=== PATIENT | female | born 1970 | race Caucasian/White ===

== ENCOUNTER → 2017-08-29 | Outpatient (CLI) | payer BC ==
[~2017-08-29] MED LIST: ZLF/50 PO
== END | disposition home or self-care (01) ==
LOC: C.LABSPEC 15:59
PROVIDERS: ATTEND Obstetrics & Gynecology
DX: R39.9 Unspecified symptoms and signs involving the genitourinary system (principal)

== ENCOUNTER → 2017-09-05 | Outpatient (CLI) | payer BC | END | disposition home or self-care (01) | LOC: C.PATHSPEC 17:39 | PROVIDERS: ATTEND Urology | DX: R93.8 Abnormal findings on diagnostic imaging of other specified body structures (principal); R30.0 Dysuria; R31.0 Gross hematuria; R39.15 Urgency of urination ==

== ENCOUNTER → 2017-09-05 | Outpatient (CLI) | payer BC ==
--- NOTE | 2017-09-06 14:55 | MAMMOGRAPHY REPORT ---
BILATERAL DIGITAL SCREENING MAMMOGRAM TOMOSYNTHESIS WITH CAD: 09/05/2017 CLINICAL HISTORY: Routine screening. Patient has no complaints. TECHNIQUE: The study was acquired using full field digital technology and interpreted from soft copy. Breast tomosynthesis in addition to standard 2D mammography was performed. Current study was also ev aluated with a Computer Aided Detection (CAD) system. COMPARISON: Comparison is made to exams dated: 08/03/2014 mammogram, 01/19/2014 mammogram, 07/21/2013 mammogram, 07/17/2013 mammogram, 07/16/2012 mammogram - [facility], and 08/06/2009 mamm ogram. BREAST COMPOSITION: The tissue of both breasts is heterogeneously dense, which may obscure small mass es. FINDINGS: The glandular pattern is similar to prior mammograms including a stable asymmetry in the sl ightly medial and posterior right breast on the CC view. No new suspicious mass, architectural distor tion or cluster of microcalcifications is seen. IMPRESSION: ACR BI-RADS CATEGORY 1: NEGATIVE There is no mammographic evidence of malignancy. A 1 year screening mammogram is recommended.( [id number]) The patient will receive written notification of the results. Some breast cancers are not detected with mammography. A negative mammographic report should not otf y biopsy if a clinically suggestive mass is present. Domitila Bynum M.D. ay/:09/05/2017 16:09:34 New Vehicle Sales Consultant: Maricruz Floyd, [facility] letter sent: Normal 1/2 BI-RADS Code: ACR BI-RADS Category 1: Negative
== END | disposition home or self-care (01) ==
LOC: C.MAMM 12:36
PROVIDERS: ATTEND Nurse Practitioner Family
DX: Z12.31 Encounter for screening mammogram for malignant neoplasm of breast (principal)

== ENCOUNTER → 2017-09-10 | Outpatient (CLI) | payer BC | END | disposition home or self-care (01) | LOC: C.LAB 16:57 | PROVIDERS: ATTEND Urology | DX: R93.8 Abnormal findings on diagnostic imaging of other specified body structures (principal); R30.0 Dysuria; R31.9 Hematuria, unspecified; R39.15 Urgency of urination ==

== ENCOUNTER 2023-08-27 12:39 | Observation (INO) ==
--- NOTE | 2023-08-27 12:57 | Emergency Department Note ---
Impression & Plan Stroke-like symptoms, Paresthesias ED Provider Note HISTORY OF PRESENT ILLNESS: Patient is a 53-year-old female presenting with left-sided numbness and tingling. Patient reports that last night around 1999 she developed left facial numbness and tingling. Reports that it felt like her face was injected with lidocaine like at the dentist. She states that she went to bed and "normally I am very restless sleeping but last night he slept very soundly because I was so exhausted." She states that she woke this morning and had numbness and tingling in her left arm and left lower extremity. She states that she called her primary care provider's office and they referred her to the emergency department for further evaluation. Patient denies any chest pain or shortness of breath. Denies any anticoagulation or antiplatelet use. She states that she has had some intermittent numbness in her left side over the last week, but the numbness currently is persistent and has not gone away. Denies any headache or significant changes in vision. Denies any slurred speech. She reports it does feel slightly difficult to get words out secondary to "my mouth feels like it is lagging behind." ROS: as above PHYSICAL EXAM: Constitutional: Patient appears in no acute distress. HENT: Head: Normocephalic and atraumatic. Eyes: EOMI, PERRL Mouth/Throat: Mucous membranes moist. Neck: Trachea midline. Neck supple. Cardiovascular: RRR, No murmurs, rubs or gallops. Intact distal pulses. Pulmonary/Chest: No respiratory distress. Breath sounds clear and equal bilaterally. No wheezes or rales. Abdominal: Abdomen soft, no tenderness, rebound or guarding. Musculoskeletal: No edema, tenderness or deformity noted. Skin: Warm and dry. No rash, erythema, pallor or cyanosis Psychiatric: Appropriate mood and affect for situation. Neurological: Alert and keenly responsive. Facies symmetric. Able to raise eyebrows, close eyes, smile, puff mouth, stick out tongue, move tongue left and right and raise palate symmetrically. Able to shrug shoulders. PERRLA. SILT to forehead below eye and at jawline. Can hear soft noise bilaterally. Good finger to nose. Strength 5/5 in bilateral upper and lower extremities. SILT throughout bilateral upper and lower extremities. MDM: - Vitals signs showed hypertension. - History obtained via patient. History as above. - Chronic conditions affecting care: None - Differential diagnoses include, but are not limited to: CVA; intracranial hemorrhage; dysrhythmia; electrolyte abnormality - Order placed for continuous cardiac monitoring. At this time, monitor showed rate of 71 bpm with normal sinus rhythm, per my interpretation. - External medical records reviewed. History and physical note from 02/26/2018 was reviewed. Patient was seen for follow up s/p lap trevin - EKG interpreted by myself showed normal sinus rhythm. Rate 77 bpm. QT 392. No acute ischemic changes. 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 - Patient started having a left-sided headache in ER. Given 1g IV tylenol. She continued to have paresthesias of her LUE and left face. Will admit for further stroke-like symptoms workup. - Discussion was had with embedded case manager about patient's case and need for admission - Hospitalist consulted for admission - [facility] and [facility]. ASSESSMENT AND PLAN: Diagnosis: stroke-like symptoms; paresthesias Plan: admit Past Med/Surg History Problem List Paresthesias (Acute) Stroke-like symptoms (Acute) Encounter for pre-operative examination Diverticulosis Gallstones History of endometrial ablation Anxiety (Chronic) History of nasal septoplasty History of tonsillectomy History of tooth extraction WISDOM TEETH History of laparoscopy History of colonoscopy Medical History (Updated 08/27/23 @ 15:23 by Shayla La MD) Anemia HX Temporomandibular joint disorder POPS BILAT HAS NEVER LOCKED Surgical History History of esophagogastroduodenoscopy (EGD) Family History Mother Family history of diabetes mellitus Social History Smoking Status: Never smoker Second Hand Exposure: No; Do You Dip or Chew Tobacco: No; Hx Alcohol Use: No Hx Substance Use: No Preferred Language: Lithuanian Communication Ability: Effective Wireworker Required: No Beliefs That Will Affect Care: None marital status: Current Living Situation: Spouse and Family Current Living Situation Comment: LIVES WITH , SON AND STEPSON current occupational status: employed Feels Safe at Home: Yes Assistive Devices: Glasses Allergies Allergies Allergy/AdvReac Type Severity Reaction Status Date / Time bee venom protein (honey bee) Allergy Severe Difficulty Verified 03/02/21 22:46 Breathing ciprofloxacin [From Cipro] Allergy Severe Swelling Verified 03/02/21 22:46 of Lip/Tongue/Throat sulfamethoxazole Allergy Severe HIVES,SWELLING Verified 03/02/21 22:47 [From Bactrim] LIPS THROAT trimethoprim [From Bactrim] Allergy Severe HIVES,SWELLING Verified 03/02/21 22:47 LIPS THROAT amoxicillin Allergy Intermediate hives Verified 03/02/21 22:47 clavulanic acid Allergy Intermediate hives Verified 03/02/21 22:47 oxycodone Allergy Intermediate Hives Verified 03/02/21 22:46 Home Meds Home Medications Medication Instructions Recorded Confirmed sertraline 50 mg tablet 50 mg PO HS 11/13/17 08/27/23 epinephrine 0.3 mg/0.3 mL 0.3 ml IM DAILY PRN Allergic 05/05/20 08/27/23 injection, auto-injector Reaction Results & Data (ED) Vital Signs Vital Signs - 24 hr 08/27/23 12:46 08/27/23 12:59 08/27/23 13:03 Pulse Rate 80 83 79 Pulse Rate [Apical] Pulse Rate from SpO2 Sensor 80 Pulse Rhythm Regular Pulse Rhythm [Apical] Pulse Strength Normal Pulse Strength [Apical] Respiratory Rate 18 18 Respiratory Effort / Characteristics Non-Labored Respiratory Depth Normal Respiratory Pattern Blood Pressure 166/87 H 138/91 Blood Pressure [Right Arm] Blood Pressure Mean 113 106 Blood Pressure Mean [Right Arm] Blood Pressure Position Sitting Pulse Oximetry 98 99 Oxygen Delivery Method Room Air Room Air Sepsis Recent Fever Within 48 Hours No Sepsis New/Unexplained Change in Mental Status No Sepsis Action Taken by Nursing No Action Required 08/27/23 15:10 Pulse Rate Pulse Rate [Apical] 71 Pulse Rate from SpO2 Sensor Pulse Rhythm Pulse Rhythm [Apical] Regular Pulse Strength Pulse Strength [Apical] Normal Respiratory Rate 18 Respiratory Effort / Characteristics Non-Labored Spontaneous Respiratory Depth Normal Respiratory Pattern Regular Blood Pressure Blood Pressure [Right Arm] 132/80 Blood Pressure Mean Blood Pressure Mean [Right Arm] 97 Blood Pressure Position Pulse Oximetry 97 Oxygen Delivery Method Room Air Sepsis Recent Fever Within 48 Hours Sepsis New/Unexplained Change in Mental Status Sepsis Action Taken by Nursing Laboratory Data 08/27/23 12:54 08/27/23 12:54 Lab Results 08/27/23 08/27/23 Range/Units 12:54 13:03 WBC 5.58 (4.8-10.8) K/ul RBC 4.48 (4.20-5.40) M/uL Hgb 13.5 (12.0-16.0) g/dl POC Hgb 12.9 (12.0-16.0) g/dl Hct 39.6 (37.0-47.0) % POC Hct 38 (37-47) % MCV 88.4 (80.0-100.0) fL MCH 30.1 (25.0-34.0) pg MCHC 34.1 (32.0-36.0) g/dL RDW Std Deviation 39.2 (36.4-46.3) fL RDW Coeff of Neal 12.2 (11.5-14.5) % Plt Count 238 (130-400) K/uL MPV 9.5 (9.4-12.4) fL PT 10.2 (9.0-12.0) Seconds INR 0.9 (0.9-1.1) APTT 27 (21-31) Seconds PTT Ratio 1.0 POC Sodium 141 (135-144) mmol/L Sodium 140 (136-145) mmol/L POC Potassium 3.6 (3.3-5.0) mmol/L Potassium 3.6 (3.5-5.1) mmol/L POC Chloride 103 (101-112) mmol/L Chloride 105 (98-107) mmol/L Carbon Dioxide 28 (21-32) mmol/L POC Total CO2 24 (24-31) mmol/L Anion Gap 7 (3-11) POC Anion Gap 19.0 (16-25) mmol/L POC BUN 10 (7-18) mg/dl BUN 11 (6-23) mg/dl Creatinine 0.86 (0.6-1.2) mg/dl POC Creatinine 0.9 (0.6-1.3) mg/dl Est Cr Clr Drug Dosing 74.9 ml/min Est GFR ( Amer) 88.1 ml/min Est GFR (Non-Af Amer) 76.1 ml/min BUN/Creatinine Ratio 12.8 (10-20) Glucose 133 H (70-99(Fasting)) mg/dl POC Glucose (other) 130 H (70-99) mg/dl Calcium 9.4 (8.6-10.3) mg/dl POC Ioniz Calcium Chetna 1.21 (1.12-1.32) mmol/l Magnesium 2.0 (1.7-2.4) mg/dl Total Bilirubin 0.4 (0.2-1.0) mg/dl AST 16 (13-39) U/L ALT 16 (7-52) U/L Alkaline Phosphatase 43 (34-104) U/L Troponin I High Sens < 2.3 (0-14) pg/ml Total Protein 7.0 (6.0-8.3) gm/dl Albumin 4.4 (3.4-5.0) gm/dl Globulin 2.6 (2.5-4.0) gm/dl Albumin/Globulin Ratio 1.7 (0.9-2) Administered Medications Discontinued Medications Acetaminophen (Ofirmev) 1,000 mg in 100 mls @ 400 mls/hr IV NOW STA Stop: 08/27/23 15:13 Last Admin: 08/27/23 15:04 Dose: 400 mls/hr Documented By: NITO Ioversol (Optiray 320 125ml) 119 ml IV ONCE ONE Stop: 08/27/23 13:22 Last Admin: 08/27/23 13:22 Dose: 119 ml Documented By: KAJAL Imaging Data Radiologist's Impression: Chest X-Ray 08/27/23 12:53 XR chest 1V portable CLINICAL HISTORY: stroke like symptoms COMPARISON STUDY: No previous studies for comparison. FINDINGS: Lung volumes are normal. Lungs are clear. There is no pneumothorax or pleural effusion. Cardiac size is normal. Mediastinal contours are normal. There is no evidence for pulmonary edema. IMPRESSION: No acute cardiopulmonary findings. ACT 112: Negative or not required by law. Electronically signed by: Nitish Joy M.D. 08/27/2023 1:[address] 08/27/23 12:53 CT head/brain wo con CLINICAL HISTORY: 53 years-old Female with Neuro deficit, acute, stroke suspected. Acute stroke like symptoms TECHNIQUE: Multiple axial CT images of the head were obtained without contrast. A dose lowering technique was utilized adhering to the principles of ALARA. CT DOSE: 1058.71 mGy.cm COMPARISON: CTA head of same day, head CT 03/02/2021 FINDINGS: No acute intracranial hemorrhage, midline shift, intracranial mass, hydrocephalus, territorial ischemia or abnormal extra-axial collection. Mildly motion degraded exam. Low-lying cerebellar tonsils. The calvarium is intact. The paranasal sinuses, mastoid air cells, and middle ear cavities are clear. IMPRESSION: No acute intracranial abnormality. ACT 112: Negative or not required by law. The above report was generated using voice recognition software. It may contain grammatical, syntax or spelling errors. Electronically signed by: Cruz Patel M.D. 08/27/2023 1:29 PM Head CTA 08/27/23 12:53 CT angio head w con CLINICAL HISTORY: 53 years-old Female with L sided numbness. Acute stroke like symptoms COMPARISON STUDY: Head CT of same day, CTA head 03/02/2021 TECHNIQUE: Unenhanced axial CT scan of the brain is performed. Subsequently, following the IV administration of 03/02/2021 cc of Optiray, CT angiogram of the brain was performed from the skull base to the vertex. Images are reviewed in the axial, sagittal, and coronal planes. 3-D MIPS images are created and assessed. IV contrast was administered without complication. All measurements were obtained according to NASCET criteria. A dose lowering technique was utilized adhering to the principles of ALARA. FINDINGS: CT ANGIOGRAM OF THE BRAIN: The middle and anterior cerebral arteries appear patent. There is an unchanged 2 mm saccular aneurysm noted at the level of the left MCA trifurcation (image 116 of series 5). Dominant right vertebral artery. The vertebral arteries are widely patent. The bilateral vertebral arteries are widely patent. The basilar and posterior cerebral arteries are patent. The cerebral venous sinuses are patent. There is no abnormal intracranial enhancement. IMPRESSION: 1. No acute intracranial abnormality. 2. 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 ACT 112: Negative or not required by law. The above report was generated using voice recognition software. It may contain grammatical, syntax or spelling errors. Electronically signed by: Cruz Patel M.D. 08/27/2023 2:08 PM Neck CTA 08/27/23 12:53 CT ANGIOGRAPHY OF THE NECK WITH CONTRAST CLINICAL HISTORY: Left-sided numbness. COMPARISON STUDY: CTA of the neck March 02, 2021. Technique: CT angiography of the carotid and vertebral arteries was obtained using Optiray and 3D reconstruction on an independent workstation. NASCET criteria was utilized. Automated exposure control was utilized for the study. A dose lowering technique was utilized adhering to the principles of ALARA. Findings: Visualized portions of the lung apices are unremarkable. There is no cervical spine fracture. There is no cervical lymphadenopathy. There is medialization of the right vocal cord. The bilateral common carotid, cervical internal carotid and vertebral arteries are patent. There is moderate plaque within the proximal bilateral cervical internal carotid arteries without stenosis. There is no aneurysm or dissection within the neck. IMPRESSION: 1. Moderate atherosclerotic plaque within the proximal bilateral internal carotid arteries without significant stenosis. No dissection or aneurysm within neck. 2. Medialization of the right vocal cord. This may be artifactual but raise the possibility of right vocal cord paralysis. ACT 112: Negative or not required by law. Electronically signed by: Nitish Joy M.D. 08/27/2023 2:02 PM Discharge Plan Visit Data Chief Complaint: Stroke/CVA Symptoms Stated Complaint: STROKE SYMTOMS ED Provider: Shayla La Discharge Problem: Stroke-like symptoms, Paresthesias Forms Stand Alone Forms: [employer] Prescriptions Prescriptions: No Action sertraline 50 mg Tablet 50 mg PO HS epinephrine 0.3 mg/0.3 mL auto-injector 0.3 ml IM DAILY PRN (Reason: Allergic Reaction) Rx Instructions: LAST FILLED OCT 2022 [employer] Referrals Referrals: Joey Hernandez DO [Outside Practitioners] -
[2023-08-27 13:15] LABS: iSTAT Creatinine 0.9 mg/dl (0.6-1.3); iSTAT Hemoglobin 12.9 g/dl (12.0-16.0); iSTAT Ionized Calcium 1.21 mmol/l (1.12-1.32); iSTAT Potassium 3.6 mmol/L (3.3-5.0)
[2023-08-27] MEDS: OPTIRAY 320 125ml IV ONE (13:22)
--- NOTE | 2023-08-27 13:30 | CT Scan Report ---
CT head/brain wo con CLINICAL HISTORY: 53 years-old Female with Neuro deficit, acute, stroke suspected. Acute stroke like symptoms TECHNIQUE: Multiple axial CT images of the head were obtained without contrast. A dose lowering tech nique was utilized adhering to the principles of ALARA. CT DOSE: 1058.71 mGy.cm COMPARISON: CTA head of same day, head CT 03/02/2021 FINDINGS: No acute intracranial hemorrhage, midline shift, intracranial mass, hydrocephalus, territorial ischem ia or abnormal extra-axial collection. Mildly motion degraded exam. Low-lying cerebellar tonsils. The calvarium is intact. The paranasal sinuses, mastoid air cells, and middle ear cavities are clear . IMPRESSION: No acute intracranial abnormality. ACT 112: Negative or not required by law. The above report was generated using voice recognition software. It may contain grammatical, syntax o r spelling errors. Electronically signed by: Cruz Patel M.D. 08/27/2023 1:29 PM
[2023-08-27 13:37] LABS: Alanine Aminotransferase 16 U/L (7-52); Albumin Globulin Ratio 1.7 (0.9-2); Albumin Level 4.4 gm/dl (3.4-5.0); Alkaline Phosphatase 43 U/L (34-104); Anion Gap 7 (3-11); Aspartate Aminotransferase 16 U/L (13-39); BUN Creatinine Ratio 12.8 (10-20); Bilirubin,Total 0.4 mg/dl (0.2-1.0); Blood Urea Nitrogen 11 mg/dl (6-23); Calcium 9.4 mg/dl (8.6-10.3); Carbon Dioxide 28 mmol/L (21-32); Chloride 105 mmol/L (98-107); Creatinine Clr Calc Pharmacy 74.9 ml/min; Est GFR (African American) 88.1 ml/min; Est GFR (Non-African American) 76.1 ml/min; Globulin 2.6 gm/dl (2.5-4.0); Glucose 133 mg/dl (70-99(Fasting)); Potassium 3.6 mmol/L (3.5-5.1); Sodium 140 mmol/L (136-145)
[2023-08-27 13:39] LABS: Hematocrit (blood only) 39.6 % (37.0-47.0); Hemoglobin 13.5 g/dl (12.0-16.0); Mean Corpuscular Hemoglobin 30.1 pg (25.0-34.0); Mean Corpuscular Hgb Conc 34.1 g/dL (32.0-36.0); Mean Corpuscular Volume 88.4 fL (80.0-100.0); Mean Platelet Volume 9.5 fL (9.4-12.4); Platelet Count 238 K/uL (130-400); RDW Coefficient of Variation 12.2 % (11.5-14.5); RDW Standard Deviation 39.2 fL (36.4-46.3); Red Blood Count 4.48 M/uL (4.20-5.40); White Blood Count 5.58 K/ul (4.8-10.8)
[2023-08-27 13:40] LABS: Troponin I High Sensitivity < 2.3 pg/ml (0-14)
--- NOTE | 2023-08-27 13:41 | XRay Report ---
XR chest 1V portable CLINICAL HISTORY: stroke like symptoms COMPARISON STUDY: No previous studies for comparison. FINDINGS: Lung volumes are normal. Lungs are clear. There is no pneumothorax or pleural effusion. Car diac size is normal. Mediastinal contours are normal. There is no evidence for pulmonary edema. IMPRESSION: No acute cardiopulmonary findings. ACT 112: Negative or not required by law. Electronically signed by: Nitish Joy M.D. 08/27/2023 1:40 PM
[2023-08-27 13:45] LABS: INR 0.9 (0.9-1.1); Partial Thromboplastin Time 27 Seconds (21-31); Prothrombin Time 10.2 Seconds (9.0-12.0)
--- NOTE | 2023-08-27 14:04 | CT Scan Report ---
CT ANGIOGRAPHY OF THE NECK WITH CONTRAST CLINICAL HISTORY: Left-sided numbness. COMPARISON STUDY: CTA of the neck March 02, 2021. Technique: CT angiography of the carotid and vertebral arteries was obtained using Optiray and 3D rec onstruction on an independent workstation. NASCET criteria was utilized. Automated exposure control was utilized for the study. A dose lowering technique was utilized adhering to the principles of ALA RA. Findings: Visualized portions of the lung apices are unremarkable. There is no cervical spine fractur e. There is no cervical lymphadenopathy. There is medialization of the right vocal cord. The bilatera l common carotid, cervical internal carotid and vertebral arteries are patent. There is moderate plaq ue within the proximal bilateral cervical internal carotid arteries without stenosis. There is no ane urysm or dissection within the neck. IMPRESSION: 1. Moderate atherosclerotic plaque within the proximal bilateral internal carotid arteries without si gnificant stenosis. No dissection or aneurysm within neck. 2. Medialization of the right vocal cord. This may be artifactual but raise the possibility of right vocal cord paralysis. ACT 112: Negative or not required by law. Electronically signed by: Nitish Joy M.D. 08/27/2023 2:02 PM
--- NOTE | 2023-08-27 14:09 | CT Scan Report ---
CT angio head w con CLINICAL HISTORY: 53 years-old Female with L sided numbness. Acute stroke like symptoms COMPARISON STUDY: Head CT of same day, CTA head 03/02/2021 TECHNIQUE: Unenhanced axial CT scan of the brain is performed. Subsequently, following the IV adminis tration of 03/02/2021 cc of Optiray, CT angiogram of the brain was performed from the skull base to th e vertex. Images are reviewed in the axial, sagittal, and coronal planes. 3-D MIPS images are created and assessed. IV contrast was administered without complication. All measurements were obtained acco rding to NASCET criteria. A dose lowering technique was utilized adhering to the principles of ALARA. FINDINGS: CT ANGIOGRAM OF THE BRAIN: The middle and anterior cerebral arteries appear patent. There is an unchanged 2 mm saccular aneurysm noted at the level of the left MCA trifurcation (image 116 of series 5). Dominant right vertebral ar daniel. The vertebral arteries are widely patent. The bilateral vertebral arteries are widely patent. T he basilar and posterior cerebral arteries are patent. The cerebral venous sinuses are patent. There is no abnormal intracranial enhancement. IMPRESSION: 1. No acute intracranial abnormality. 2. 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 ACT 112: Negative or not required by law. The above report was generated using voice recognition software. It may contain grammatical, syntax o r spelling errors. Electronically signed by: Cruz Patel M.D. 08/27/2023 2:08 PM
[2023-08-27] MEDS: ACETAMINOPHEN 1,000 MG/100 ML VIAL IV STA (15:04)
--- NOTE | 2023-08-27 15:42 | History & Physical Report ---
Date of Service August 27, 2023 Assessment & Plan (1) Stroke-like symptoms: (2) Paresthesias: Plan: This is a 53yo F with a PMH of anxiety who presents with intermittent left sided paresthesias x 4 days. L sided paresthesias x 4 days, started on forehead now notes in L arm, hand and leg as well. Also with visual changes since resolved and mental fogginess Was seen at [facility] on Sunday with labwork done (normal CBC, CMP, TSH, mag, B12) CT head with no acute intracranial abnormality CTA head with no acute intracranial abnormality. 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 No dissection or aneurysm within neck. Medialization of the right vocal cord Ddx stroke vs complex migraine vs seizure vs MS Pending : brain MRI w/wo, echo with bubble study, EEG BMP, CBC, lipids and a1c in AM Routine neuro consult PT/OT/speech eval per stroke set protocol Aspirin and statin ordered History of Present Illness Chief Complaint: L sided numbness, confusion Primary Care Provider: NO PCP This is a 53yo F with a PMH of anxiety who presents with intermittent left sided paresthesias x 4 days. First noted tingling in migrating spots on top of head and then started to feel disoriented and confused on a Zoom call at 10:15AM that resolved a few hours but did not trust herself to drive during that time. Had some visual changes as well and had to increase font to work on her computer. Was seen at [facility] on Sunday with labwork done (normal CBC, CMP, TSH, mag, B12) as well as imaging ordered (CT head, CTA head/neck, brain MRI, EEG) that has not yet been done. Beatrice slightly better over the weekend but was taking it easy, resting more and still felt "less sharp" than norm. States that she can follow a conversation but feels like she is "straining" to get detail correct and focus. When going to bed last night, developed numbness and headache on left side with fatigue. Woke up later than usual today and still felt weak. Developed numbness on left side of face again but this time extending to left arm, hand and leg. Still able to ambulate without difficulty. No difficulty speaking or swallowing. Called PCP and they called an ambulance to bring her to ED. Endorses migraines years ago but they were pure headaches without any associated numbness or tingling. Father with history of trigeminal neuralgia and stroke. No F/C or recent known viruses. No tick bites. No CP, SOB, N/V, abd pain, dysuria, diarrhea or constipation. Allergies Allergy/AdvReac Type Severity Reaction Status Date / Time bee venom protein (honey bee) Allergy Severe Difficulty Verified 03/02/21 22:46 Breathing ciprofloxacin [From Cipro] Allergy Severe Swelling Verified 03/02/21 22:46 of Lip/Tongue/Throat sulfamethoxazole Allergy Severe HIVES,SWELLING Verified 03/02/21 22:47 [From Bactrim] LIPS THROAT trimethoprim [From Bactrim] Allergy Severe HIVES,SWELLING Verified 03/02/21 22:47 LIPS THROAT amoxicillin Allergy Intermediate hives Verified 03/02/21 22:47 clavulanic acid Allergy Intermediate hives Verified 03/02/21 22:47 oxycodone Allergy Intermediate Hives Verified 03/02/21 22:46 Home Medications Medication Instructions Recorded Confirmed Type sertraline 50 mg tablet 50 mg PO HS 11/13/17 08/27/23 History epinephrine 0.3 mg/0.3 mL 0.3 ml IM DAILY PRN Allergic 05/05/20 08/27/23 History injection, auto-injector Reaction Past Med/Surg History Problem List (Updated 08/27/23 @ 16:30 by Debo Natarajan PA-C) Paresthesias (Acute) Stroke-like symptoms (Acute) History of laparoscopy History of colonoscopy Medical History (Updated 08/28/23 @ 00:04 by Claribel Gonzalez) Diverticulosis Anxiety Surgical History (Updated 08/27/23 @ 16:30 by Debo Natarajan PA-C) History of endometrial ablation History of tooth extraction WISDOM TEETH History of nasal septoplasty Hx of cholecystectomy History of tonsillectomy History of esophagogastroduodenoscopy (EGD) Family History (Updated 08/27/23 @ 16:36 by Debo Natarajan PA-C) Mother Family history of diabetes mellitus Other Stroke Social History Smoking Status: Never smoker Second Hand Exposure: No; Do You Dip or Chew Tobacco: No; Tobacco Cessation Education Requested by Patient: No Hx Alcohol Use: No Hx Substance Use: No Preferred Language: Thai Communication Ability: Effective Weight Checker Required: No Beliefs That Will Affect Care: None marital status: Current Living Situation: Spouse Current Living Situation Comment: LIVES WITH , SON AND STEPSON current occupational status: employed Other Information That Helps Us Care for You: No Feels Safe at Home: Yes and No Is there a partner from a previous relationship who is making you feel unsafe now?: No Any Concerns about Your Family Situation: No Safety Concerns: Feels Safe At This Time Assistive Devices: Glasses Review of Systems Review of Systems: At least ten systems reviewed and negative except as noted in the HPI. Physical Exam Physical Exam: General Appearance: WD/WN, vitals as above, NAD, sitting up in bed, pleasant, conversing easily Head: normocephalic, atraumatic Eyes: normal inspection, PERRL, conjunctivae normal, anicteric sclerae ENT: external ear and nose normal, oropharynx normal Neck: normal visual inspection, trachea midline, no thyromegaly Respiratory: normal respiratory effort, lungs clear to auscultation, no wheeze, rales, rhonchi. No accessory muscle use Cardiovascular: regular rate, rhythm, no murmur, normal peripheral pulses, no BLE edema. Vessels: no JVD Chest: normal inspection of chest Abdomen/GI: normal bowel sounds, soft, nontender, no hepatosplenomegaly Extremities/Musculoskeletal: no cyanosis or clubbing, extremities motor strength 5/5 Neurologic: PERRL, EOMI, accommodation nl, no face palsy, no dysarthria, CN's II-XI intact bilaterally and moves all extremities. Finger to note intact bilaterally Psychiatric: A+Ox3, euthymic affect Skin: no rashes, normal color, warm/dry Results & Data Results & Data Vital Signs (Past 12 Hours) Vital Signs Pulse Pulse Resp BP BP Pulse Ox O2 Del Method 08/27/23 15:10 71 18 132/80 97 Room Air 08/27/23 13:03 79 18 138/91 99 Room Air 08/27/23 12:59 83 08/27/23 12:46 80 18 166/87 H 98 Room Air Laboratory Results Short CBC 08/27/23 Range/Units 12:54 WBC 5.58 (4.8-10.8) K/ul Hgb 13.5 (12.0-16.0) g/dl Hct 39.6 (37.0-47.0) % Plt Count 238 (130-400) K/uL BMP 08/27/23 12:54 Sodium 140 Potassium 3.6 Chloride 105 Carbon Dioxide 28 BUN 11 Creatinine 0.86 Glucose 133 H Calcium 9.4 Liver Function 08/27/23 Range/Units 12:54 Total Bilirubin 0.4 (0.2-1.0) mg/dl AST 16 (13-39) U/L ALT 16 (7-52) U/L Alkaline Phosphatase 43 (34-104) U/L Albumin 4.4 (3.4-5.0) gm/dl Diagnostic Findings Chest X-Ray 08/27/23 12:53 XR chest 1V portable CLINICAL HISTORY: stroke like symptoms COMPARISON STUDY: No previous studies for comparison. FINDINGS: Lung volumes are normal. Lungs are clear. There is no pneumothorax or pleural effusion. Cardiac size is normal. Mediastinal contours are normal. There is no evidence for pulmonary edema. IMPRESSION: No acute cardiopulmonary findings. ACT 112: Negative or not required by law. Electronically signed by: Nitish Joy M.D. 08/27/2023 1:[address] 08/27/23 12:53 CT head/brain wo con CLINICAL HISTORY: 53 years-old Female with Neuro deficit, acute, stroke suspected. Acute stroke like symptoms TECHNIQUE: Multiple axial CT images of the head were obtained without contrast. A dose lowering technique was utilized adhering to the principles of ALARA. CT DOSE: 1058.71 mGy.cm COMPARISON: CTA head of same day, head CT 03/02/2021 FINDINGS: No acute intracranial hemorrhage, midline shift, intracranial mass, hydrocephalus, territorial ischemia or abnormal extra-axial collection. Mildly motion degraded exam. Low-lying cerebellar tonsils. The calvarium is intact. The paranasal sinuses, mastoid air cells, and middle ear cavities are clear. IMPRESSION: No acute intracranial abnormality. ACT 112: Negative or not required by law. The above report was generated using voice recognition software. It may contain grammatical, syntax or spelling errors. Electronically signed by: Cruz Patel M.D. 08/27/2023 1:29 PM Head CTA 08/27/23 12:53 CT angio head w con CLINICAL HISTORY: 53 years-old Female with L sided numbness. Acute stroke like symptoms COMPARISON STUDY: Head CT of same day, CTA head 03/02/2021 TECHNIQUE: Unenhanced axial CT scan of the brain is performed. Subsequently, following the IV administration of 03/02/2021 cc of Optiray, CT angiogram of the brain was performed from the skull base to the vertex. Images are reviewed in the axial, sagittal, and coronal planes. 3-D MIPS images are created and assessed. IV contrast was administered without complication. All measurements were obtained according to NASCET criteria. A dose lowering technique was utilized adhering to the principles of ALARA. FINDINGS: CT ANGIOGRAM OF THE BRAIN: The middle and anterior cerebral arteries appear patent. There is an unchanged 2 mm saccular aneurysm noted at the level of the left MCA trifurcation (image 116 of series 5). Dominant right vertebral artery. The vertebral arteries are widely patent. The bilateral vertebral arteries are widely patent. The basilar and posterior cerebral arteries are patent. The cerebral venous sinuses are patent. There is no abnormal intracranial enhancement. IMPRESSION: 1. No acute intracranial abnormality. 2. 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 ACT 112: Negative or not required by law. The above report was generated using voice recognition software. It may contain grammatical, syntax or spelling errors. Electronically signed by: Cruz Patel M.D. 08/27/2023 2:08 PM Neck CTA 08/27/23 12:53 CT ANGIOGRAPHY OF THE NECK WITH CONTRAST CLINICAL HISTORY: Left-sided numbness. COMPARISON STUDY: CTA of the neck March 02, 2021. Technique: CT angiography of the carotid and vertebral arteries was obtained using Optiray and 3D reconstruction on an independent workstation. NASCET criteria was utilized. Automated exposure control was utilized for the study. A dose lowering technique was utilized adhering to the principles of ALARA. Findings: Visualized portions of the lung apices are unremarkable. There is no cervical spine fracture. There is no cervical lymphadenopathy. There is medialization of the right vocal cord. The bilateral common carotid, cervical internal carotid and vertebral arteries are patent. There is moderate plaque within the proximal bilateral cervical internal carotid arteries without stenosis. There is no aneurysm or dissection within the neck. IMPRESSION: 1. Moderate atherosclerotic plaque within the proximal bilateral internal carot id arteries without significant stenosis. No dissection or aneurysm within neck. 2. Medialization of the right vocal cord. This may be artifactual but raise the possibility of right vocal cord paralysis. ACT 112: Negative or not required by law. Electronically signed by: Nitish Joy M.D. 08/27/2023 2:02 PM Supervising Physician Co-Signing Physician Notes Pt was seen and examined by myself, Adeola Loja MD on the day of service. Care was coordinated with Debo Natarajan PA-C. 53yoF presenting with left sided facial numbness and tingling. Notes it comes and goes and spreads. States episode of throat closing yesterday, wasnt sure if anxiety related. Not a mead, no hx of vocal cord paralysis. CT imaging grossly negative for a cause but does note possible r vocal cord paralysis Neurology consulted, appreciate recs Stroke workup including mri brain, Myasthenia panel, r/o MS Otherwise as above. I spent a total [id number] coordinating, documenting, and providing care for this patient excluding time spent in the performance of separately billed services
[2023-08-27] MEDS: ASPIRIN CHEW 324 MG PO STA (16:40)
--- NOTE | 2023-08-27 16:43 | Neurology Consultation ---
Date of Consultation August 27, 2023 Assessment & Plan (1) Stroke-like symptoms: Left lower extremity weakness and left hemiparesthesia including face Recommend continued stroke work up to include the following: MRI brain, cervical and thoracic spine with and without contrast to eval for ischemic stroke and/or demyelination given patients age/demographic and reported symptomatology Echocardiogram as part of complete stroke workup Continue frequent neurological assessments Obtain stat CT brain without contrast for any acute neurological decline Continue to monitor/control blood pressure & blood glucose Continue to monitor telemetry closely Recommend ZioPatch at DC if no evidence of arrhythmia during inpatient monitoring Continue to monitor renal and hepatic function, keep euvolemic Metabolic workup should include hgbA1c, fasting lipids, homocysteine, TSH, D Dimer, RPR, urinalysis Recommend DAPT for at least 3 weeks Recommend high dose statin therapy indefinitely if tolerated Ok from neurology perspective for VTE prophylaxis PT/OT/SLT to eval and treat Recommend outpatient polysomnography Communicated directly with primary team Telehealth Consultation Telehealth Information Telehealth Information: I performed this visit using a real-time telehealth connection between my location and the patients location ([facility]). After connecting through interactive tele-video, patient was identified by name and date of and/or wristband check.Patient (or authorized healthcare sales representative cash registers) was informed that this was a telemedicine visit and it was being conducted confidentially over secure lines. My office door was closed and no one else was present in the room with me.Patient (or authorized healthcare sales representative cash registers) provided consent to proceed with the visit, expressed an understanding of privacy and security of the telemedicine visit, and gave permission to have a hospital sales representative cash registers in the room in order to assist with the visit and to conduct portions of the visit, as needed. I informed the patient (or authorized healthcare sales representative cash registers) that I reviewed their record and presented the opportunity for them to ask any questions regarding the visit today. The patient agreed to participate. History of Present Illness Reason for Consultation: Left hemiparesthesia including face History of Present Illness 53yo female presented with report of ongoing left hemiparesthesia including face. Reportedly first noted in face as if she had a novocaine injection then woke up next am with LUE and LLE feeling of numbness as well. She reports intermittently feeling this change in sensation over the past few days to week but it is not persistent. Feels at times as if she is not speaking properly as well. Reports some confusion last - during a Zoom meeting she feels like she lost focus/mind went blank. [place] as if she was dreaming. Reports it has happened previously at bedtime. She was not considered an IV thrombolytic candidate due to timing of onset of symptoms. She has undergone emergent stroke imaging including CT brain without contrast, personally reviewed today, revealing no overt evidence of hemorrhage. CT angiographic studies of head and neck, also personally reviewed today, reveal no overt evidence of large vessel occlusion or significant/flow limiting stenosis. 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 I have performed televideo consultation. She is alert & oriented; able to answer all questions appropriately, name objects on televideo monitor, repeat phrases and perform complex/embedded commands without deficit. Neurological exam reveals LLE drift as well as reported ongoing left hemiparesthesia including face. NIHSS=3 for sensory changes in face and left upper and lower extremities as well as LLE weakness. She denies evidence suggestive of Lhermitte sign or Uhthoff's phenomenon She does reports symptoms of sleep apnea- states she will awaken short of breath and with palpitations sometimes and believes she snores She reports frequent headaches and daytime sleepiness Currently denies cephalgia or cervicalgia Denies chest pain/palpitations or shortness of breath No reported changes in vision hearing dizziness syncope seizure like activity Denies recent fevers chills nausea vomiting changes in bowels or bladder Denies recent medication changes, recent illness or sick contacts, no reported recent travel Allergies Allergy/AdvReac Type Severity Reaction Status Date / Time bee venom protein (honey bee) Allergy Severe Difficulty Verified 03/02/21 22:46 Breathing ciprofloxacin [From Cipro] Allergy Severe Swelling Verified 03/02/21 22:46 of Lip/Tongue/Throat sulfamethoxazole Allergy Severe HIVES,SWELLING Verified 03/02/21 22:47 [From Bactrim] LIPS THROAT trimethoprim [From Bactrim] Allergy Severe HIVES,SWELLING Verified 03/02/21 22:47 LIPS THROAT amoxicillin Allergy Intermediate hives Verified 03/02/21 22:47 clavulanic acid Allergy Intermediate hives Verified 03/02/21 22:47 oxycodone Allergy Intermediate Hives Verified 03/02/21 22:46 Home Medications Medication Instructions Recorded Confirmed Type sertraline 50 mg tablet 50 mg PO HS 11/13/17 08/27/23 History epinephrine 0.3 mg/0.3 mL 0.3 ml IM DAILY PRN Allergic 05/05/20 08/27/23 History injection, auto-injector Reaction Patient History Medical History (Updated 08/27/23 @ 16:40 by Debo Natarajan PA-C) Diverticulosis Anxiety Surgical History (Updated 08/27/23 @ 16:30 by Debo Natarajan PA-C) History of endometrial ablation History of tooth extraction WISDOM TEETH History of nasal septoplasty Hx of cholecystectomy History of tonsillectomy History of esophagogastroduodenoscopy (EGD) Family History (Updated 08/27/23 @ 16:36 by Debo Natarajan PA-C) Mother Family history of diabetes mellitus Other Stroke Social History Smoking Status: Never smoker Second Hand Exposure: No; Do You Dip or Chew Tobacco: No; Hx Alcohol Use: No Hx Substance Use: No Preferred Language: Korean Communication Ability: Effective Collection Supervisor Required: No Beliefs That Will Affect Care: None marital status: Current Living Situation: Spouse and Family Current Living Situation Comment: LIVES WITH , SON AND STEPSON current occupational status: employed Feels Safe at Home: Yes Assistive Devices: Glasses Physical Exam Neurological Examination: Mental Status: Awake and alert. Oriented to person, place, and time. Fluency naming repetition and comprehension appear grossly intact. Affect remains appropriate. CN testing: I: Denies changes in ability to smell II:Reports no changes in visual acuity III/IV/: No evidence of gaze preference, hippus, nystagmus or roving eye movements V: Facial sensation reportedly grossly intact to light touch bilaterally VII: Facial movements appear without evidence of asymmetry VIII: Hearing appears grossly intact to loud voice bilaterally IX/X: Palate appears to elevate symmetrically XI: Shoulder shrug appears symmetric/ grossly intact bilaterally XII: Tongue protrudes midline without evidence of biting Motor exam: LLE monoparesis Sensory: Left hemiparesthesia including face Coordination: No apparent evidence of dysmetria or dysdiadochokinesia BUE Reflexes: Deferred Gait: Deferred Results & Data Vital Signs (Past 12 Hours) Vital Signs Pulse Pulse Resp BP BP Pulse Ox O2 Del Method 08/27/23 15:10 71 18 132/80 97 Room Air 08/27/23 13:03 79 18 138/91 99 Room Air 08/27/23 12:59 83 08/27/23 12:46 80 18 166/87 H 98 Room Air Laboratory Results Abnormal lab results 08/27/23 08/27/23 Range/Units 12:54 13:03 Glucose 133 H (70-99(Fasting)) mg/dl POC Glucose (other) 130 H (70-99) mg/dl Diagnostic Findings Chest X-Ray 08/27/23 12:53 XR chest 1V portable CLINICAL HISTORY: stroke like symptoms COMPARISON STUDY: No previous studies for comparison. FINDINGS: Lung volumes are normal. Lungs are clear. There is no pneumothorax or pleural effusion. Cardiac size is normal. Mediastinal contours are normal. There is no evidence for pulmonary edema. IMPRESSION: No acute cardiopulmonary findings. ACT 112: Negative or not required by law. Electronically signed by: Nitish Joy M.D. 08/27/2023 1:[address] 08/27/23 12:53 CT head/brain wo con CLINICAL HISTORY: 53 years-old Female with Neuro deficit, acute, stroke suspected. Acute stroke like symptoms TECHNIQUE: Multiple axial CT images of the head were obtained without contrast. A dose lowering technique was utilized adhering to the principles of ALARA. CT DOSE: 1058.71 mGy.cm COMPARISON: CTA head of same day, head CT 03/02/2021 FINDINGS: No acute intracranial hemorrhage, midline shift, intracranial mass, hydrocephalus, territorial ischemia or abnormal extra-axial collection. Mildly motion degraded exam. Low-lying cerebellar tonsils. The calvarium is intact. The paranasal sinuses, mastoid air cells, and middle ear cavities are clear. IMPRESSION: No acute intracranial abnormality. ACT 112: Negative or not required by law. The above report was generated using voice recognition software. It may contain grammatical, syntax or spelling errors. Electronically signed by: Cruz Patel M.D. 08/27/2023 1:29 PM Head CTA 08/27/23 12:53 CT angio head w con CLINICAL HISTORY: 53 years-old Female with L sided numbness. Acute stroke like symptoms COMPARISON STUDY: Head CT of same day, CTA head 03/02/2021 TECHNIQUE: Unenhanced axial CT scan of the brain is performed. Subsequently, following the IV administration of 03/02/2021 cc of Optiray, CT angiogram of the brain was performed from the skull base to the vertex. Images are reviewed in th e axial, sagittal, and coronal planes. 3-D MIPS images are created and assessed. IV contrast was administered without complication. All measurements were obtained according to NASCET criteria. A dose lowering technique was utilized adhering to the principles of ALARA. FINDINGS: CT ANGIOGRAM OF THE BRAIN: The middle and anterior cerebral arteries appear patent. There is an unchanged 2 mm saccular aneurysm noted at the level of the left MCA trifurcation (image 116 of series 5). Dominant right vertebral artery. The vertebral arteries are widely patent. The bilateral vertebral arteries are widely patent. The basilar and posterior cerebral arteries are patent. The cerebral venous sinuses are patent. There is no abnormal intracranial enhancement. IMPRESSION: 1. No acute intracranial abnormality. 2. 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 ACT 112: Negative or not required by law. The above report was generated using voice recognition software. It may contain grammatical, syntax or spelling errors. Electronically signed by: Cruz Patel M.D. 08/27/2023 2:08 PM Neck CTA 08/27/23 12:53 CT ANGIOGRAPHY OF THE NECK WITH CONTRAST CLINICAL HISTORY: Left-sided numbness. COMPARISON STUDY: CTA of the neck March 02, 2021. Technique: CT angiography of the carotid and vertebral arteries was obtained using Optiray and 3D reconstruction on an independent workstation. NASCET criteria was utilized. Automated exposure control was utilized for the study. A dose lowering technique was utilized adhering to the principles of ALARA. Findings: Visualized portions of the lung apices are unremarkable. There is no cervical spine fracture. There is no cervical lymphadenopathy. There is medialization of the right vocal cord. The bilateral common carotid, cervical internal carotid and vertebral arteries are patent. There is moderate plaque within the proximal bilateral cervical internal carotid arteries without stenosis. There is no aneurysm or dissection within the neck. IMPRESSION: 1. Moderate atherosclerotic plaque within the proximal bilateral internal carotid arteries without significant stenosis. No dissection or aneurysm within neck. 2. Medialization of the right vocal cord. This may be artifactual but raise the possibility of right vocal cord paralysis. ACT 112: Negative or not required by law. Electronically signed by: Nitish Joy M.D. 08/27/2023 2:02 PM Medications Administered Home Medications Medication Instructions Recorded Confirmed Last Taken sertraline 50 mg tablet 50 mg PO HS 11/13/17 08/27/23 03/01/21 epinephrine 0.3 mg/0.3 mL 0.3 ml IM DAILY PRN Allergic 05/05/20 08/27/23 Unknown injection, auto-injector Reaction
[2023-08-27] MEDS: GADOBUTROL 65ML VIAL IV ONE (18:06)
[2023-08-27] MEDS ORDERED: PHARMACIST DISCHARGE MED REC CONSULT PRN (18:09)
[2023-08-27] MEDS ORDERED: POLYETHYLENE (MIRALAX) 17 GM PACK PO PRN (18:09)
[2023-08-27] MEDS ORDERED: ONDANSETRON INJ 2 MG/ML 2 ML VIAL IV PRN (18:09)
--- NOTE | 2023-08-27 18:56 | Magnetic Resonance Report ---
MR brain wo/w con HISTORY: 53 years-old Female L facial numbness, confusion acutely altered mental status COMPARISON: MRI cervical spine and head CT studies of same day TECHNIQUE: Multiplanar multisequence MRI of the brain was obtained with and without IV contrast. FINDINGS: No restricted diffusion. Midline structures are unremarkable. No acute intracranial hemorrhage, midli ne shift, abnormal extra-axial collection, hydrocephalus or intra-axial mass. No pathologic blooming artifact. Brain volume is normal for patient age. There are a few scattered subcentimeter foci of T2/ FLAIR prolongation within the subcortical in periventricular white matter, likely of no clinical sign ificance. Cerebral venous sinuses and major arterial flow voids appear patent. Skull, orbits and soft tissues a re unremarkable. Mastoid air cells and paranasal sinuses appear clear. Normal signal within the brain stem and imaged upper cervical spinal cord. No abnormal enhancement. IMPRESSION: 1. No acute intracranial abnormality. No acute or subacute infarct. 2. No abnormal enhancement. 3. Mild scattered subcentimeter foci of T2/FLAIR prolongation within the periventricular and subcorti francisco white matter favors early changes of chronic microvascular ischemic disease. A demyelinating proc ess is considered less likely however could appear similarly. ACT 112: Negative or not required by law. The above report was generated using voice recognition software. It may contain grammatical, syntax o r spelling errors. Electronically signed by: Cruz Patel M.D. 08/27/2023 6:53 PM
--- NOTE | 2023-08-27 19:02 | Magnetic Resonance Report ---
MR cervical spine wo/w con HISTORY: 53 years-old Female eval for demyelinating disease per neuro acute left-sided facial numbne ss with tingling COMPARISON: Brain MRI of same day, CTA neck of same day TECHNIQUE: Multiplanar multisequence MRI of the cervical spine was obtained with and without IV contr ast FINDINGS: Mildly motion degraded exam. No abnormal enhancement. Straightening of the normal cervical lordosis. No acute fracture, subluxation or endplate erosion. No significant bone marrow edema. Normal signal w ithin the imaged posterior fossa structures, cervical and imaged upper thoracic spinal cord. Small up per thoracic Tarlov cysts. Unremarkable soft tissues of the neck. C2-C3: Mild uncovertebral hypertrophy and facet arthrosis. No central canal or foraminal narrowing. C3-C4: Mild uncovertebral hypertrophy and facet arthrosis. No central canal or foraminal narrowing. C4-C5: Moderate intervertebral disc space narrowing with small posterior disc osteophyte complex and mild facet arthrosis. Flattening of the ventral thecal sac without significant central canal stenosis . Mild left with mild to moderate right foraminal narrowing. C5-C6: Moderate intervertebral disc space narrowing with small posterior disc osteophyte complex and mild facet arthrosis. The central canal is patent. Mild to moderate bilateral foraminal narrowing. C6-C7: Uncovertebral hypertrophy with small posterior annular disc bulge and mild facet arthrosis. Fl attening of the ventral thecal sac without significant central canal or foraminal narrowing. C7-T1: Mild facet arthrosis. No central canal or foraminal narrowing. IMPRESSION: 1. Normal signal of the cervical spinal cord. No demyelinating plaques or abnormal enhancement. 2. Moderate intervertebral disc space narrowing at C4-C5 and C5-C6. 3. No high-grade central canal or foraminal narrowing. ACT 112: Negative or not required by law. The above report was generated using voice recognition software. It may contain grammatical, syntax o r spelling errors. Electronically signed by: Cruz Patel M.D. 08/27/2023 7:01 PM
[2023-08-27] MEDS: ATORVASTATIN 40 MG TAB PO SCH (20:04)
[2023-08-27] MEDS: SERTRALINE HCL 50 MG TABLET PO SCH (20:04)
[2023-08-27] MEDS: HEPARIN SOD 5,000 UNIT/0.5 ML VIAL SQ SCH (20:05)
[2023-08-27] MEDS: CLOPIDOGREL BISULFATE 300 MG TAB PO STA (20:37)
--- OUTSIDE RECORDS SUMMARY | 2023-08-27 22:38 | External Medical Summary ---
Author Name Unknown Address Unknown Organization [id number]:[facility] [place] [address] [place] [address] Laboratory Report Ordering Provider Test Date Status PAM REYNA 08/25/2023 09:10:27 Final Observation Date Value Abnormality Reference (Units ) Status TSH 08/25/2023 09:10:27 1.78 0.27-4.20 (uIU/mL) Final Performing Location [facility] [place] [address] [facility] [address]
--- OUTSIDE RECORDS SUMMARY | 2023-08-27 22:38 | External Medical Summary ---
Author Name Unknown Address Unknown Organization [id number]:[facility] - [address] [place] [address] Laboratory Report Ordering Provider Test Date Status PAM REYNA 08/25/2023 09:10:27 Final Observation Date Value Abnormality Reference (Units ) Status Vitamin B12 08/25/2023 09:10:27 216 Below low normal 2 32-1245 (pg/mL) Final Performing Location [facility]ATORY [facility] - [address] [place] [address]
--- OUTSIDE RECORDS SUMMARY | 2023-08-27 22:38 | External Medical Summary ---
Author Name Unknown Address Unknown Organization [id number]:[facility] - [address] [place] [address] Laboratory Report Ordering Provider Test Date Status PAM REYNA 08/25/2023 09:10:27 Final Observation Date Value Abnormality Reference (Units ) Status WBC, Total 08/25/2023 09:10:27 6.39 4.00-10.8 0 (K/uL) Final RBC 08/25/2023 09:10:27 4.46 3.85-5.15 (M/uL) Final Hemoglobin 08/25/2023 09:10:27 13.6 12.0-15.3 (g/dL) Final HCT 08/25/2023 09:10:27 40.5 36.0-45.2 (%) Final MCV 08/25/2023 09:10:27 90.8 81.5-97.5 (fL) Final MCH 08/25/2023 09:10:27 30.5 27.0-34.0 (pg) Final MCHC 08/25/2023 09:10:27 33.6 32.0-36.0 (g/dL) Final RDW 08/25/2023 09:10:27 12.3 11.5-15.5 (%) Final Platelets 08/25/2023 09:10:27 269 140-400 (K /uL) Final MPV 08/25/2023 09:10:27 9.4 6.6-11.1 ( fL) Final [facility] [address] [place] [address]
--- OUTSIDE RECORDS SUMMARY | 2023-08-27 22:38 | External Medical Summary ---
Author Name Unknown Address Unknown Organization [id number]:[facility] - [address] [place] [address] Laboratory Report Ordering Provider Test Date Status PAM REYNA 08/25/2023 09:10:27 Final Observation Date Value Abnormality Reference (Units ) Status Magnesium 08/25/2023 09:10:27 2.2 1.5-2.6 (m g/dL) Final Performing Location [facility]AT[facility] - [address] [place] [address]
--- OUTSIDE RECORDS SUMMARY | 2023-08-27 22:38 | External Medical Summary ---
Author Name Unknown Address Unknown Organization K0G:[facility] [address] - [address] [place] [address] Laboratory Report Ordering Provider Test Date Status PAM REYNA 08/25/2023 09:10:27 Final Observation Date Value Abnormality Reference (Units ) Status SYNC LEUKOCYTES IN BLOOD BY AUTOMATED COUNT 08/25/2023 09:10:27 6.39 4.00-10.80 (K/uL) Final Segs 08/25/2023 09:10:27 52.8 40.0-75.0 (%) Final Lymphs % 08/25/2023 09:10:27 37.9 18.0-42.0 (%) Final Monos 08/25/2023 09:10:27 7.2 1.0-11.0 (%) Final Eosinophils 08/25/2023 09:10:27 1.6 0.0-6.0 (%) Final Basos 08/25/2023 09:10:27 0.5 0.0-2.0 (%) Final Absolute Segs 08/25/2023 09:10:27 3.38 1.80-7.70 (K/uL) Final Lymphs, absolute 08/25/2023 09:10:27 2.42 1.00-4.80 (K/ul) Final Monos, Abs 08/25/2023 09:10:27 0.46 0.00-1.10 (K/uL) Final Eos, Abs 08/25/2023 09:10:27 0.10 0.00-0.70 (K/uL) Final Basos, Abs 08/25/2023 09:10:27 0.03 0.00-0.20 (K/uL) Final Performing Location LAB[facility]ATORY [facility] - [address] [place] [address]
--- OUTSIDE RECORDS SUMMARY | 2023-08-27 22:38 | External Medical Summary | Summary of Care ---
Author Name Unknown Organization [facility] Address [address] [place] [address] Phone [phone] Care Team Providers Care Pack Worker Supervisor Name Role Phone Unavailable Primary Care Provider Unavailabl e Reason for Visit * Reason Comments Outpatient Testing Encounter Details Date Type Department Care Team (Late st Contact Info) Description 08/25/2023 9:20 AM EDT Laboratory Laboratory, [facility] [address] [facility] [place] [id number] [facility] [address] [facility] [place] [address] [facility] Other*[id number]; Disorientation; Other complicated headache syndrome; Confusion Allergies Active Allergy Reactions Criticality Noted Date Comments Amoxicillin 02/02/2015 hives Ciprofloxacin 08/21/2018 Throat swelling Oxycodone-Acetaminophen Hives 01/25/2009 documented as of this encounter (statuses as of 08/25/2023) Medications Medication Sig Dispensed Refills Start Date End Date Status Propranolol HCl 10 MG Oral Tablet (Inderal)Indication s:Situational anxiety Take 1 tab 30-60 minutes prior to public speaking event as needed for anxiety. 30 Tablet 02/24/2021 Active Additional Information Patient not taking.Reported on 02/08/2023 Fluticasone Propionate 50 MCG/ACT Nasal Suspension (Flonase)Indication s:Non-seasonal allergic rhinitis, unspecified trigger instill 2 sprays into each nostril every morning 16 g 2 03/07/2022 Active EPINEPHrine 0.3 MG/0.3ML Injection Solution Auto-injector (Autoinjector)Indic ations:Bee sting allergy For a severe reaction: Inject in outer thigh following instructions on package and go to the Emergency room. 2 Each 3 10/31/2022 Active Ibuprofen 600 MG Oral Tablet (Motrin)Indications :De Quervain's tenosynovitis, right Take 1 Tablet by mouth in the morning and 1 Tablet at noon and 1 Tablet before bedtime. with food for pain. 30 Tablet 1 10/31/2022 Active Diclofenac Sodium 1 % External Gel (Voltaren) Apply topically to affected area 3 times a day as needed for Pain. Apply to affected area 100 g 2 11/08/2022 Active Sertraline HCl 50 MG Oral Tablet (Zoloft) take 1 tablet by mouth once daily 90 Tablet 2 12/22/2022 Active Promethazine-DM 6.25-15 MG/5ML Oral SyrupIndications:Ac suki cough,Wheezing,Acut e URI Take 5 mL by mouth 4 times a day as needed for Cough. 120 mL 1 02/08/2023 Active Albuterol Sulfate HFA 108 (90 Base) MCG/ACT Inhalation Aerosol SolutionIndications :Acute cough,Wheezing,Acut e URI Inhale 2 Puffs by mouth every 4 hours as needed for Dyspnea or Wheezing. 18 g 02/08/2023 Active documented as of this encounter (statuses as of 08/25/2023) Active Problems Problem Noted Date Diagnosed Date Well adult exam 05/06/2020 Overview: 05/05/20 [facility] ER abnormal CT-lymph nodes mod wax/wane S/P cholecystectomy 07/09/2018 Deviated nasal septum 08/18/2008 Seasonal allergic rhinitis 08/18/2008 Overview: ICD-10 update of inactive term PERSONAL HX OF ALLERGY TO INSECT ,STING 08/19/19 09 Overview: childhood, twenties - generalized hives from bee stings ADVANCE DIRECTIVE INFORMATION 10/30/2005 Overview: Yes, Patient instructed to provide copy of advance directive for provider to review and to be scanned into Electronic Medical Record documented as of this encounter (statuses as of 08/25/2023) Resolved Problems Problem Noted Date Diagnosed Date Resolved Date Dysfunction of eustachian tube 07/21/2010 12/11/2016 Hypertrophy of nasal turbinates 03/01/2009 12/11/2016 Other chronic allergic conjunctivitis 08/18/2008 12/11/2016 Asthma with severity to be determined 07/20/2008 08/18/2008 Overview: ICD-10 update of inactive term PREMENSTRUAL TENSION 08/16/2005 017 documented as of this encounter (statuses as of 08/25/2023) Immunizations Name Administration Dates Next Due Seasonal Influenza, PF, 6 M & above, IM , (FluLaval or Fluzone) 10/31/2022,11/20/2020,12/09/2016 Seasonal Influenza, Quadriva lent, No Preserve, IM 11/20/2015,12/19/2014 Seasonal Influenza, Split, I IV3, With Preserve, Inj 11/19/2012,11/13/2011 TDAP (age 10 and older)(Boostrix) 11/13/2011 TDAP, Age 7 and older, IM (Adacel) 11/19(Deferred: Patient Refused - duplicate order) documented as of this encounter Social History Tobacco Use Types Packs/Day Years Used Date Smoking Tobacco: Former Cigarettes 0 07/28/1989 - 07/28/2004 Smokeless Tobacco: Never Comments:smoked off an on [employer] [facility] [employer] until quiting - 02/22/2010<5 daily Alcohol Use Standard Drinks/Week Comments No 0 (1 standard drink = 0.6 oz pur e alcohol) PHQ-2 Answer Date Recorded PHQ-2 Score 0 09/11/2018 Utilities Answer Date Recorded Do you have trouble paying y our heating, water, or electric bill? (Adult - for ages 18 years and over) Not on file 07/24/2023 Is your family able to pay t he heat, water, or electric bill? (Household - for ages 0-17 years) Not on file 07/24/2023 Does your family have access to good internet? (Household - for ages 0-17 years) Not on file 07/24/2023 Social Connections Answer Date Recorded How often do you feel lonely or isolated from those around you? (Adult - for ages 18 years and over) Not on file 07/24/2023 Sex and Gender Information Value Date Recorded Sex Assigned at Female 08/23/2023 7:15 PM EDT Gender Identity Female 08/23/2023 7:15 PM EDT Sexual Orientation Straight 08/23/2023 7: 15 PM EDT Job Start Date Occupation Industry Not on file Not on file Not on file documented as of this encounter Plan of Treatment Upcoming Encounters Date Type Department Care Team (Late st Contact Info) Description 08/30/2023 3:30 PM EDT Imaging Radiology [address], [address] [place] [address] 08/30/2023 3:45 PM EDT Imaging Radiology [address], [place] [address] [facility] [place] [address] 08/30/2023 4:00 PM EDT Imaging Radiology [address], [address] [place] [address] 08/31/2023 7:30 AM EDT NeuroDiagnostic Study Neurophysiology [facility] [address] [facility] [place] [address] Sp, Neurophys Tech [address] [facility] [place] [address] 09/06/2023 10:00 AM EDT Office Visit Neurology [facility] [place] [address] [place] [address] Norma Suarez PA-C [address] [facility] [place] [address] Pending Results Name Type Priority Associated Diagnoses Date /Time MYCODE SUBSEQUENT ADULT Lab Routine [employer] Other*[id number] 08/25/2023 9:10 AM EDT CBC WITH WBC DIFFERENTIAL Lab Routine Disorientation Other complicated headache syndrome Confusion 08/25/2023 9:10 AM EDT COMPREHENSIVE METABOLIC PANEL Lab Routine Disorientation Other complicated headache syndrome Confusion 08/25/2023 9:10 AM EDT TSH WITH FREE T4 IF INDICATED Lab Routine Disorientation Other complicated headache syndrome Confusion 08/25/2023 9:10 AM EDT MAGNESIUM Lab Routine Disorientation Other complicated headache syndrome Confusion 08/25/2023 9:10 AM EDT VITAMIN B12 Lab Routine Disorientation Other complicated headache syndrome Confusion 08/25/2023 9:10 AM EDT MYCODE SST1 Lab Routine [employer] Other*[id number] 08/25/2023 9:10 AM EDT MYCODE SST2 Lab Routine [employer] Other*[id number] 08/25/2023 9:10 AM EDT CBC Lab Routine Disorientation Other complicated headache syndrome Confusion 08/25/2023 9:10 AM EDT DIFFERENTIAL, AUTOMATED Lab Routine Disorientation Other complicated headache syndrome Confusion 08/25/2023 9:10 AM EDT Health Maintenance Due Date Last Done Comments Hepatitis C Screening 1986 Hepatitis B Vaccine (1 of 3 - 19+ 3-dose series) 05/02/1987 Cologuard 2013 Fecal Occult Blood Test 2013 Sigmoidoscopy 2013 PAP SMEAR-ANNUAL AGES 18-100 07/17/2013 07/17/2012, 09/30/2009 (Done elsewhere), 06/17/2008, Additional history exists Zoster Vaccines (1 of 2) 2018 Depression Screening 11/02/2019 11/01/2018 Colonoscopy 11/14/2020 11/14/2010 DTaP,Tdap,and Td Vaccines (2 - Td or Tdap) 11/12/2021 11/13/2011 COVID-19 Vaccine ( season) 2022 Colorectal Cancer Screening 09/20/2023 Postponed from 2013 (Acute Illness) Influenza Vaccine (FLU shot) (#1) 2023 10/31/2022, 11/20/2020, 11/05/2017, Additional history exists Lipid Panel 11/02/2023 11/01/2018, 11/11/2001 Mammogram 11/07/2023 11/06/2022, 04/0 08/2020, 07/21/2013, Additional history exists Diabetes Screening 03/02/2024 03/02/2021, 0 06/11/2019, 06/09/2019, Additional history exists HPV (Gardasil) Vaccine Aged Out No lo nger eligible based on patient's age to complete this topic MENINGOCOCCAL (MENACTRA/MENVEO) Aged Out No longer eligible based on patient's age to complete this topic Pneumococcal Vaccine: Pediatrics (0 to 5 Years) and At-Risk Patients (6 to 64 Years) Aged Out No longer eligible based on patient's age to complete this topic documented as of this encounter Medical Devices Not on filedocumented as of this encounter Visit Diagnoses Diagnosis MyCode Research Other*[id number] Disorientation Other general symptoms Other complicated headache syndrome Confusion Unspecified psychosis documented in this encounter
--- OUTSIDE RECORDS SUMMARY | 2023-08-27 22:39 | External Medical Summary ---
Author Name Unknown Address Unknown Organization [id number]:[facility] [place] - [address] [facility] [place] [address] Laboratory Report Ordering Provider Test Date Status BRITNEY HAILE 08/25/2023 09:10:27 Final Observation Date Value Abnormality Reference (Units ) Status MYCODE SPECIMEN-SST 08/25/2023 09:10:27 Freezing of extracted DNA, whole blood and/or serum. Final Performing Location [facility] [place] - [address] [place] [address]
--- OUTSIDE RECORDS SUMMARY | 2023-08-27 22:39 | External Medical Summary | Summary of Care ---
Author Name Unknown Organization [facility] Address [address] [place] [address] Phone [phone] Care Team Providers Care Manager Coding Name Role Phone Unavailable Primary Care Provider Unavailabl e Reason for Referral * Precert (Within 10 days (routine)) - Pending Review Specialty Diagnoses / Procedures Referred By Contac t Referred To Contact Radiology Diagnoses Disorientation Other complicated headache syndrome Confusion Procedures CTA HEAD Fauzia Frost DO [address] [place] [address] Referral ID Status Reason Start Date Expiration Date V isits Requested Visits Authorized [id number] Pending Review 08/24/[phone] * Precert (Within 10 days (routine)) - Pending Review Specialty Diagnoses / Procedures Referred By Contac t Referred To Contact Radiology Diagnoses Disorientation Other complicated headache syndrome Confusion Procedures CTA NECK Fauzia Frost DO [address] [place] [address] Referral ID Status Reason Start Date Expiration Date V isits Requested Visits Authorized [id number] Pending Review 08/24/2023 999 999 * Precert (Within 10 days (routine)) - Pending Review Specialty Diagnoses / Procedures Referred By Contac t Referred To Contact Radiology Diagnoses Disorientation Other complicated headache syndrome Confusion Procedures CT HEAD/BRAIN WO CONTRAST Fauzia Frost DO [address] [place] [address] Referral ID Status Reason Start Date Expiration Date V isits Requested Visits Authorized [id number] Pending Review 08/24/2023 999 999 * Evaluate & Treat - Unlimited Visits (Within 10 days (routine)) - Pending Review Specialty Diagnoses / Procedures Referred By Avery navas Referred To Contact Neurology Diagnoses Disorientation Other complicated headache syndrome Confusion Fauzia Frost DO [address] [place] [address] Referral ID Status Reason Start Date Expiration Date Visits Requested Visits Authorized [id number] Pending Review Specialty Services Required 08/24/[phone] Question Answer Referral Priority Within 10 days (routine) Where should this appointment be scheduled? [facility] Is this referral being placed for insurance purposes ONLY No, patient needs appointment [facility] NEUROLOGY REFERRAL QUESTIONS Other Conditions Reason for Visit * Reason Comments Acute Pt being seen for meadows dden onset of severe confusion, and feeling disoriented. Has some tingling in head and some ear pain in Rt ear as well. Happened yesterday with these symptoms and lasted 4 hours, has this happen 4 months ago. Encounter Details Date Type Department Care Team (Late st Contact Info) Description 08/24/2023 11:40 AM EDT Office Visit [facility] [address] [place] [address] Fauzia Frost DO [address] [place] [address] Disorientation*; Other complicated headache syndrome; Confusion Allergies Active Allergy Reactions Criticality Noted Date Comments Amoxicillin 02/02/2015 hives Ciprofloxacin 08/21/2018 Throat swelling Oxycodone-Acetaminophen Hives 01/25/2009 documented as of this encounter (statuses as of 08/24/2023) Medications Medication Sig Dispensed Refills Start Date [...] 12/22/2022 Active Promethazine-DM 6.25-15 MG/5ML Oral SyrupIndications:Ac [place] cough,Wheezing,Acut e URI Take 5 mL by mouth 4 times a day as needed for Cough. 120 mL 1 02/08/2023 Active Albuterol Sulfate HFA 108 (90 Base) MCG/ACT Inhalation Aerosol SolutionIndications :Acute cough,Wheezing,Acut e URI Inhale 2 Puffs by mouth every 4 hours as needed for Dyspnea or Wheezing. 18 g 02/08/2023 Active documented as of this encounter (statuses as of 08/24/2023) Active Problems Problem Noted Date Diagnosed Date Well adult exam 05/06/2020 Overview: 05/05/20 [facility] ER abnormal CT-lymph nodes mod wax/wane S/P [...] as of this encounter (statuses as of 08/24/2023) Resolved Problems Problem Noted Date Diagnosed Date Resolved Date Dysfunction of eustachian tube 07/21/2010 12/11/2016 Hypertrophy of nasal turbinates 03/01/2009 12/11/2016 Other chronic allergic conjunctivitis 08/18/2008 12/11/2016 Asthma with severity to be determined 07/20/2008 08/18/2008 Overview: ICD-10 update of inactive term PREMENSTRUAL TENSION 08/16/2005 017 documented as of this encounter (statuses as of 08/24/2023) Immunizations Name Administration Dates Next Due Seasonal [...] 0 07/28/1989 - 07/28/2004 Smokeless Tobacco: Never Tobacco Cessation:Counseling Given: Not Answered Comments:smoked off an on since college until quiting - 02/22/2010<5 daily Alcohol Use [...] on file documented as of this encounter Last Filed Vital Signs Vital Sign Reading Time Taken Comments Blood Pressure 106/80 08/24/2023 11:33 AM EDT Pulse 70 08/24/2023 11:33 AM EDT Temperature 37.2 C (99 F) 08/24/2023 11:33 AM EDT Respiratory Rate 16 08/24/2023 11:33 AM EDT Oxygen Saturation - - Inhaled Oxygen Concentration - - Weight 72.1 kg (159 lb) 08/24/2023 11:33 AM EDT Height - - Body Mass Index 26.36 10/31/2022 10:40 AM EDT documented in this encounter Progress Notes * Fauzia Frost, - 08/24/2023 11:36 AM EDT Subjective: Kristie Gonzalez is a 53 year old female. Chief Complaint Patient presents with Acute Pt being seen for sudden onset of severe confusion, and feeling disoriented. Has some tingling in head and some ear pain in Rt ear as well. Happened yesterday with these symptoms and lasted 4 hours, has this happen 4 months ago. There are no exam notes on file for this visit. HPI: This is a 53 year old female with PMHx as below presents with acute illness Headache, tingling of head, R earache Episode yesterday - acute confusion, disorientation lasting 4 hrs Had one other time in past few months VSS Health Maintenance Due Topic Date Due Hepatitis C Screening Never done Hepatitis B Vaccine (1 of 3 - 19+ 3-dose series) Never done PAP SMEAR-ANNUAL AGES 18-100 07/17/2013 Zoster Vaccines (1 of 2) Never done Depression Screening 11/02/2019 Colorectal Cancer Screening 11/14/2020 DTaP,Tdap,and Td Vaccines (2 - Td or Tdap) 11/12/2021 COVID-19 Vaccine ( - 2022- season) Never done Patient Active Problem List Diagnosis ADVANCE DIRECTIVE INFORMATION Deviated nasal septum Seasonal allergic rhinitis PERSONAL HX OF ALLERGY TO INSECT ,STING S/P cholecystectomy Well adult exam Current Outpatient Medications Medication Sig Dispense Refill Sertraline HCl 50 MG Oral Tablet (Zoloft) take 1 tablet by mouth once daily 90 Tablet 2 Propranolol HCl 10 MG Oral Tablet (Inderal) Take 1 tab 30-60 minutes prior to public speaking eventas needed for anxiety. (Patient not taking: Reported on 02/08/2023) 30 Tablet 0 Fluticasone Propionate 50 MCG/ACT Nasal Suspension (Flonase) instill 2 sprays into each nostril every morning 16 g 2 EPINEPHrine 0.3 MG/0.3ML Injection Solution Auto-injector (Autoinjector) For a severe reaction: Inject in outer thigh following instructions on package and go to the Emergency room. 2 Each 3 Ibuprofen 600 MG Oral Tablet (Motrin) Take 1 Tablet by mouth in the morning and 1 Tablet at noon and 1 Tablet before bedtime. with food for pain. 30 Tablet 1 Diclofenac Sodium 1 % External Gel (Voltaren) Apply topically to affected area 3 times a day as needed for Pain. Apply to affected area 100 g 2 Promethazine-DM 6.25-15 MG/5ML Oral Syrup Take 5 mL by mouth 4 times a day as needed for Cough. 120mL 1 Albuterol Sulfate HFA 108 (90 Base) MCG/ACT Inhalation Aerosol Solution Inhale 2 Puffs by mouth every 4 hours as needed for Dyspnea or Wheezing. 18 g 0 No current facility-administered medications for this visit. Past Medical History: Diagnosis Date Dysfunction of eustachian tube 07/21/2010 Hypertrophy of nasal turbinates 03/01/2009 Irritable bowel syndrome Other chronic allergic conjunctivitis 08/18/2008 S/P cholecystectomy 07/09/2018 Past Surgical History: Procedure Laterality Date COLONOSCOPY, DIAGNOSTIC (RECTUM) 11/14/2010 internal hemorrhoidsrepeat in 10 years EGD, FLEXIBLE, W/BIOPSY 10/28/2010 normal sm intestine with healing ulcer & no infection. EGD, FLEXIBLE, W/BIOPSY 11/14/2010 few gastric polyps--fundic gland polyp LAPAROSCOPY, SURGICAL; W/LYSIS OF ADHESIONS Laparoscopy,w Lysis of Adhesions(Salpingolysis,Ovarioloysis) REDUCTION OF BREAST Bilateral 2020 REMOVAL OF TONSILS, AGE 12+ Tonsils Removal,12+ Y/O REMOVAL OF TURBINATE BONES 02/11/2009 SUBMUCOUS RESECTION INFERIOR TURBINATE performed by RIKA BULLOCK at [facility] REPAIR OF NASAL SEPTUM 02/11/2009 SEPTOPLASTY performed by RIKA BULLOCK at [facility] Review of patient's allergies indicates: Allergen Reactions Amoxicillin hives Ciprofloxacin Throat swelling Percocet [Oxycodone-Acetaminophen] Hives Family History Problem Relation Name Age of Onset Thyroid Disorder Mother Renal Hx Mother end stage renal failure Diabetes Mother Heart failure Mother No Known Problems Father Hypertension Grandmother (Maternal) Hypertension Grandfather (Maternal) Hypertension Grandmother (Paternal) Hypertension Grandfather (Paternal) Breast Cancer No significant family history Colon cancer No significant family history Ovarian cancer No significant family history Family Status Relation Status Mo Alive Fa Alive MGMA (Not Specified) MGFA (Not Specified) PGMA (Not Specified) PGFA (Not Specified) No history (Not Specified) Social History Socioeconomic History Marital status: Spouse name: Not on file Number of children: Not on file Years of education: Not on file Highest education level: Not on file Occupational History Occupation: sales Comment: [employer] Tobacco Use Smoking status: Former Current packs/day: 0.00 Types: Cigarettes Start date: 07/28/1989 Quit date: 07/28/2004 Years since quittin.0 Smokeless tobacco: Never Tobacco comments: smoked off an on since college until quiting - 02/22/2010<5 daily Substance and Sexual Activity Alcohol use: No Drug use: No Sexual activity: Yes Partners: Male Other Topics Concern Service Not Asked Blood Transfusions Not Asked Caffeine Concern Not Asked Occupational Exposure Not Asked Hobby Hazards Not Asked Sleep Concern Not Asked Stress Concern Not Asked Weight Concern Not Asked Special Diet Not Asked Back Care Not Asked Exercise Yes Comment: CV/wts 3-4x/wk Bike Helmet Not Asked Seat Belt Not Asked Self-Exams No Comment: breast Social History Narrative [facility] [place] [place] INFORMATION ENVIRONMENTAL HISTORY: Type of Home: Two Story condo Type of Heating System: Gas and Forced air Air Conditioning: Yes Central Basement: Finished, Carpeted rooms and Dry Home have cockroaches: No Irritants in the home: Scented Candles Patient's bedroom location: Floor: second Type of silvino: Carpeting Beds: Number: 1 Type of beds: Mattress and Box spring Pillows: Number: 2 Type of pillows: Synthetic (hypoallergenic, polyester) Bedroom contains: Bookshelves/Books Pets: 1 cat(s) [place] farm: 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 Entered by: Chris Carpio MD 08/18/2008 Social Determinants of Health Financial Resource Strain: Not on file Food Insecurity: Not on file Transportation Needs: Not on file Social Connections: Unknown (07/24/2023) Social Connections How often do you feel lonely or isolated from those around you? (Adult - for ages 18 years and over): Not on file Housing Stability: Not on file Review of Systems: As per HPI all other ROS negative. Wt Readings from Last 3 Encounters: 08/24/23 72.1 kg (159 lb) 02/08/23 71.4 kg (157 lb 6.4 oz) 10/31/22 70.3 kg (155 lb) Results for orders placed or performed in visit on 02/08/23 INFLUENZA A/B RSV SARS-COV2,PCR Result Value Ref Range SARS-CoV-2 (COVID-19) Result Negative Negative Influenza A PCR Result Negative Negative Influenza B PCR Result Negative Negative RSV PCR Result Positive (A) Negative OBJECTIVE: Physical Exam: BP 106/80 | Pulse 70 | Temp 37.2 C (99 F) (Tympanic) | Resp 16 | Wt 72.1 kg (159 lb) | BMI 26.36 kg/m | BSA 1.82 m General: alert, healthy, and no distress Head: Normocephalic, No masses, lesions, tenderness or abnormalities Eye Exam: PERRLA, extraocular movements intact, conjunctiva are pink and non- injected, sclera clear Ears: External ears normal, Canals clear, TM's Normal Oropharynx: no exudate, no erythema, lips, buccal mucosa, and tongue normal, and mucous membranes are moist Neck: supple, no adenopathy, no bruits Heart: regular rate & rhythm, no murmur, and no gallops Extremities: no joint deformities, effusion, or inflammation Neuro Exam: alert & oriented x 3 with fluent speech, no focal motor/sensory deficits, gait normal, reflexes normal and symmetric Disorientation (Primary) - CBC WITH WBC DIFFERENTIAL; Future; Expected date: 08/24/2023 - COMPREHENSIVE METABOLIC PANEL; Future; Expected date: 08/24/2023 - TSH WITH FREE T4 IF INDICATED; Future; Expected date: 08/24/2023 - EEG ROUTINE - ADULT NEUROLOGY REFERRAL OP - CT HEAD/BRAIN WO CONTRAST; Future; Expected date: 08/24/2023 - CTA NECK; Future; Expected date: 08/24/2023 - CTA HEAD; Future; Expected date: 08/24/2023 - MAGNESIUM; Future; Expected date: 08/24/2023 - VITAMIN B12; Future; Expected date: 08/24/2023 Other complicated headache syndrome - CBC WITH WBC DIFFERENTIAL; Future; Expected date: 08/24/2023 - COMPREHENSIVE METABOLIC PANEL; Future; Expected date: 08/24/2023 - TSH WITH FREE T4 IF INDICATED; Future; Expected date: 08/24/2023 - EEG ROUTINE - ADULT NEUROLOGY REFERRAL OP - CT HEAD/BRAIN WO CONTRAST; Future; Expected date: 08/24/2023 - CTA NECK; Future; Expected date: 08/24/2023 - CTA HEAD; Future; Expected date: 08/24/2023 - MAGNESIUM; Future; Expected date: 08/24/2023 - VITAMIN B12; Future; Expected date: 08/24/2023 Confusion - CBC WITH WBC DIFFERENTIAL; Future; Expected date: 08/24/2023 - COMPREHENSIVE METABOLIC PANEL; Future; Expected date: 08/24/2023 - TSH WITH FREE T4 IF INDICATED; Future; Expected date: 08/24/2023 - EEG ROUTINE - ADULT NEUROLOGY REFERRAL OP - CT HEAD/BRAIN WO CONTRAST; Future; Expected date: 08/24/2023 - CTA NECK; Future; Expected date: 08/24/2023 - CTA HEAD; Future; Expected date: 08/24/2023 - MAGNESIUM; Future; Expected date: 08/24/2023 - VITAMIN B12; Future; Expected date: 08/24/2023 Follow Up: Return if symptoms worsen or fail to improve. Fauzia Frost DO documented in this encounter Plan of Treatment Scheduled Orders Name Type Priority Associated Diagnoses Orde r Schedule CBC WITH WBC DIFFERENTIAL Lab Routine Disorientation Other complicated headache syndrome Confusion Expected: 08/24/2023 (Approximate), Expires: 08/23/2024 COMPREHENSIVE METABOLIC PANEL Lab Routine Disorientation Other complicated headache syndrome Confusion Expected: 08/24/2023 (Approximate), Expires: 08/23/2024 TSH WITH FREE T4 IF INDICATED Lab Routine Disorientation Other complicated headache syndrome Confusion Expected: 08/24/2023 (Approximate), Expires: 08/23/2024 EEG ROUTINE Procedures Routine Disorientation Other complicated headache syndrome Confusion Ordered: 08/24/2023 CT HEAD/BRAIN WO CONTRAST Medical Imaging Routine Disorientation Other complicated headache syndrome Confusion Expected: 08/24/2023, Expires: 09/23/2024 CTA NECK Medical Imaging Routine Disorientation Other complicated headache syndrome Confusion Expected: 08/24/2023, Expires: 09/23/2024 CTA HEAD Medical Imaging Routine Disorientation Other complicated headache syndrome Confusion Expected: 08/24/2023, Expires: 09/23/2024 MAGNESIUM Lab Routine Disorientation Other complicated headache syndrome Confusion Expected: 08/24/2023 (Approximate), Expires: 08/23/2024 VITAMIN B12 Lab Routine Disorientation Other complicated headache syndrome Confusion Expected: 08/24/2023 (Approximate), Expires: 08/23/2024 Scheduled Referrals Name Type Priority Associated Diagnoses Orde r Schedule ADULT NEUROLOGY REFERRAL OP Referral Within 10 days (routine) Disorientation Other complicated headache syndrome Confusion Ordered: 08/24/2023 Health Maintenance Due Date Last Done Comments [...] Td or Tdap) 11/12/2021 11/13/2011 COVID-19 Vaccine (1 - 24 season) 2022 Colorectal Cancer Screening 09/20/2023 Postponed [...] as of this encounter Visit Diagnoses Diagnosis Disorientation- Primary Other general symptoms Other complicated headache syndrome Confusion Unspecified psychosis documented in this encounter"
--- OUTSIDE RECORDS SUMMARY | 2023-08-27 22:39 | External Medical Summary ---
Author Name Unknown Address Unknown Organization [id number]:[facility] [address] [place] [address] Laboratory Report Ordering Provider Test Date Status PAM REYNA 08/25/2023 09:10:27 Final Observation Date Value Abnormality Reference (Units ) Status BUN 08/25/2023 09:10:27 16 6-20 (mg/dL) Final Creatinine 08/25/2023 09:10:27 1.0 0.5-1.0 (mg/dL) Final Glomerular filtration rate/1.73 sq M.predicted [Volume Rate/Area] in Serum, Plasma or Blood by Creatinine-based formula (CKD-EPI) 08/25/2023 09:10:27 65 >=60 (mL/min) Final eGFR is calculated based on the CKD-EPI 2020 equation. Sodium 08/25/2023 09:10:27 139 135-146 (m mol/L) Final Potassium 08/25/2023 09:10:27 4.4 3.5-5.1 (m mol/L) Final Cl 08/25/2023 09:10:27 103 98-107 (mm ol/L) Final CO2 08/25/2023 09:10:27 27 22-32 (mmo l/L) Final Anion gap 08/25/2023 09:10:27 9 7-15 (mmol /L) Final Glucose 08/25/2023 09:10:27 95 70-120 (mg /dL) Final Albumin 08/25/2023 09:10:27 4.4 3.8-5.0 (g /dL) Final AST (Aspartate aminotransferase) 08/25/2023 09:10:27 16 10-35 (U/L) Final Alk Phos 08/25/2023 09:10:27 52 35-130 (U/ L) Final Bilirubin, Total 08/25/2023 09:10:27 0.5 <=1 .2 (mg/dL) Final Calcium 08/25/2023 09:10:27 9.6 8.4-10.2 ( mg/dL) Final Protein 08/25/2023 09:10:27 7.0 6.0-8.3 (g /dL) Final ALT (Alanine aminotransferase) 08/25/2023 09:10:27 19 10-35 (U/L) Final Performing Location [facility] [address] [place] [address]
--- OUTSIDE RECORDS SUMMARY | 2023-08-27 22:39 | External Medical Summary ---
Author Name Unknown Address Unknown Organization [id number]:[facility] [place] [facility] [address] [facility] [place] [address] Laboratory Report Ordering Provider Test Date Status BRITNEY HAILE 08/25/2023 09:10:27 Final Observation Date Value Abnormality Reference (Units ) Status MYCODE SPECIMEN-SST 08/25/2023 09:10:27 Freezing of extracted DNA, whole blood and/or serum. Final Performing Location [facility] [place] - [address] [place] [address]
[2023-08-28 00:27] LABS: Appearance Urine Clear (Clear); Bilirubin Urine Negative (Negative); Blood Urine Negative (Negative); Color Urine Yellow; Glucose Urine UA Negative (Negative); Ketones Urine Negative (Negative); Leukocyte Esterase Urine Negative (Negative); Nitrite Urine Negative (Negative); Protein Urine Negative (Negative); Specific Gravity Urine > 1.045 (1.000-1.030); Urobilinogen Urine Negative (Negative)
[2023-08-28 06:34] LABS: Hematocrit (blood only) 39.1 % (37.0-47.0); Hemoglobin 13.5 g/dl (12.0-16.0); Mean Corpuscular Hemoglobin 30.5 pg (25.0-34.0); Mean Corpuscular Hgb Conc 34.5 g/dL (32.0-36.0); Mean Corpuscular Volume 88.3 fL (80.0-100.0); Mean Platelet Volume 9.6 fL (9.4-12.4); Platelet Count 239 K/uL (130-400); RDW Coefficient of Variation 12.1 % (11.5-14.5); RDW Standard Deviation 39.1 fL (36.4-46.3); Red Blood Count 4.43 M/uL (4.20-5.40)
[2023-08-28 06:53] LABS: BUN Creatinine Ratio 18.2 (10-20); Calcium 9.1 mg/dl (8.6-10.3); Chol HDL Ratio 4.6 (0-5); Creatinine Clr Calc Pharmacy 72.5 ml/min; Est GFR (African American) 85.7 ml/min; Potassium 3.9 mmol/L (3.5-5.1)
--- NOTE | 2023-08-28 07:09 | Electrocardiogram Report ---
Test Reason : Blood Pressure : / mmHG Vent. Rate : 077 BPM Atrial Rate : 077 BPM P-R Int : 152 ms QRS Dur : 070 ms QT Int : 392 ms P-R-T Axes : 026 007 044 degrees QTc Int : 443 ms Normal sinus rhythm Normal ECG When compared with ECG of 02-MAR-2021 21:58, Premature ventricular complexes are no longer Present Confirmed by Kwaku Kruger ([id number]) on 08/28/2023 7:08:43 AM Referred By: REFERRED SELF Confirmed By:Kwaku Kruger
[2023-08-28 07:21] LABS: D Dimer < 190 ug/L FEU (0-500)
[2023-08-28 08:00] LABS: Estimated Average Glucose 108 mg/dl; Hemoglobin A1C 5.4 % (4.5-5.6)
[2023-08-28] MEDS: ACETAMINOPHEN 325 MG TAB PO PRN (08:39)
[2023-08-28] MEDS: CLOPIDOGREL BISULFATE 75 MG TAB PO SCH (08:41)
--- NOTE | 2023-08-28 08:54 | Pharmacy Report ---
- Date of Service August 28, 2023 - Pharmacy CVA/TIA Medication Review Medications to Prevent Stroke handout has been added to the patients discharge packet. Antiplatelet(s) * Clopidogrel Cholesterol * High intensity statin: atorvastatin 40 mg daily DVT Prophylaxis * Heparin SQ Therapeutic Anticoagulation * No history of Afib/Aflutter noted Type 2 Diabetes * Patient does not have T2DM
[2023-08-28] MEDS: ASPIRIN 81 MG CHEW PO SCH (10:53)
[2023-08-28] MEDS: GADOBUTROL 65ML VIAL IV ONE (13:00)
--- NOTE | 2023-08-28 13:38 | Magnetic Resonance Report ---
THORACIC SPINE MRI WITH AND WITHOUT CONTRAST HISTORY: Paresthesias. eval for demyelinating disease per neuro TECHNIQUE: Multiplanar multisequence MRI of the thoracic spine was performed both before and after th e intravenous administration of contrast. COMPARISON: None. FINDINGS: Mild dextroscoliosis of the thoracic spine. There are few small vertebral body hemangioma is noted wi thin the thoracic spine. No suspicious osseous lesions identified. No fracture or subluxation. Disc s paces are preserved. No disc herniations. No significant central canal or neural foraminal narrowing. Paravertebral soft tissues are unremarkable. The thoracic spinal cord is normal in course, caliber, and signal intensity. No abnormal enhancement identified. Incidental note is made of a 3.9 cm left he patic lobe cyst. IMPRESSION: 1. Normal thoracic spinal cord. No evidence for demyelination. 2. No fracture or subluxation within the thoracic spine. ACT 112: Negative or not required by law. Electronically signed by: Parveen Cardoso M.D. 08/28/2023 1:37 PM
[2023-08-28] MEDS: IBUPROFEN 600 MG TAB PO STA (16:44)
--- NOTE | 2023-08-28 17:02 | Hospitalist Progress Note ---
Date of Service August 28, 2023 Assessment & Plan (1) Stroke-like symptoms: Plan: Presented with intermittent left-sided paresthesias for about 4 days prior to admission Complains some headache following admission Thought to be due to strokelike symptoms and the symptoms were improved during my examination this morning Has had CT of the head, CTA of the head and neck, MRI of the brain, MRI of the third cervical and thoracic spine which were unremarkable and were evaluated by the neurologist Echo of the heart showed LVEF of 60 to 65%, LA size is normal, no significant valvular pathology and no interatrial shunt Her lipid profile prior triglyceride 188, cholesterol 233, LDL 140 and HDL 38 She was seen by the neurologist and suspected to be a condition of complex migraine Aspirin and Plavix which was started before were discontinued She was advised to take Tylenol and/or ibuprofen for attack of migraine She will have a follow-up with neurologist as an outpatient Appreciate neurology input and recommendation She will be observed this evening and tonight and likely discharge tomorrow (2) Paresthesias: Plan: Minimal paresthesia involving the left face Left frontal headache without any other associated symptoms Generally weak Has had physical therapy and recommended home without any deficiency She will be observed tonight and likely discharge tomorrow Admitting providers note- This is a 53yo F with a PMH of anxiety who presents with intermittent left sided paresthesias x 4 days. L sided paresthesias x 4 days, started on forehead now notes in L arm, hand and leg as well. Also with visual changes since resolved and mental fogginess Was seen at [facility] on Sunday with labwork done (normal CBC, CMP, TSH, mag, B12) CT head with no acute intracranial abnormality CTA head with no acute intracranial abnormality. 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 No dissection or aneurysm within neck. Medialization of the right vocal cord Ddx stroke vs complex migraine vs seizure vs MS Pending : brain MRI w/wo, echo with bubble study, EEG BMP, CBC, lipids and a1c in AM Routine neuro consult PT/OT/speech eval per stroke set protocol Aspirin and statin ordered Admission and Anticipated Discharge Date Admission Date: August 27, 2023 Subjective 08/28/2023 The patient was seen and examined in telemetry unit She was admitted with left-sided weakness, headache and left facial numbness She still has some headache on the left frontal area and feeling of minimally now involving the left face but does not have any other neurodeficit Denies any other symptoms Review of Systems Review of Systems: All systems reviewed and are unremarkable except as noted below Physical Exam Physical Exam: Lying in bed without any acute distress but very anxious Constitutional: well developed, well nourished, + ill appearing and average body habitus Eyes: PERRL, conjunctivae normal, anicteric sclerae ENMT: external ear and nose normal, oropharynx normal Neck: trachea midline, no thyromegaly Respiratory: no respiratory distress Auscultation: lungs clear to auscultation bilaterally Cardiovascular: Rate/Rhythm: regular rate and regular rhythm; not tachycardic Heart Sounds: normal S1 and normal S2; no murmur Gastrointestinal (Abdomen): Inspection/Auscultation: normal bowel sounds; abdomen not distended Percussion/Palpation: abdomen soft; abdomen nontender Musculoskeletal: No acute arthritis involving any of the joints Neurologic: normal touch/pain/proprioception and moves all extremities; no focal motor deficits Minimal left facial sensation and headache on the left side Psychiatric: A+Ox3, euthymic affect Lymphatic: no cervical or axillary lymphadenopathy Results & Data Results & Data Vital Signs (Past 12 Hours) Vital Signs Temp Pulse Pulse Resp BP Pulse Ox O2 Del Method 08/28/23 16:29 36.9 C 67 20 120/90 98 Room Air 08/28/23 14:00 73 08/28/23 11:48 75 18 131/87 98 Room Air 08/28/23 08:00 Room Air 08/28/23 07:37 36.5 C 76 16 123/83 99 Room Air 08/28/23 07:00 68 Laboratory Results Short CBC 08/28/23 Range/Units 05:41 WBC 5.90 (4.8-10.8) K/ul Hgb 13.5 (12.0-16.0) g/dl Hct 39.1 (37.0-47.0) % Plt Count 239 (130-400) K/uL BMP 08/28/23 05:41 Sodium 140 Potassium 3.9 Chloride 105 Carbon Dioxide 28 BUN 16 Creatinine 0.88 Glucose 92 Calcium 9.1 Urine 08/28/23 Range/Units Unknown Urine Color Yellow Urine Appearance Clear (Clear) Urine pH 6.0 (4.5-7.5) Ur Specific [place] > 1.045 H (1.000-1.030) Urine Protein Negative (Negative) Urine Glucose (UA) Negative (Negative) Medications Administered Current Inpatient Medications Acetaminophen (Acetaminophen 325 Mg Tab) 650 mg PO Q4H PRN PRN Reason: Pain or Fever Stop: 09/26/23 18:08 Last Admin: 08/28/23 08:39 Dose: 650 mg Atorvastatin Calcium (Atorvastatin 40 Mg Tab) 40 mg PO QAM [facility] Stop: 09/26/23 16:44 Last Admin: 08/28/23 08:42 Dose: 40 mg Heparin Sodium (Porcine) (Heparin Sod 5,000 Unit/0.5 Ml Vial) 5,000 units SQ Q8 [facility] Stop: 09/26/23 21:59 Last Admin: 08/28/23 14:18 Dose: 5,000 units Ondansetron HCl (Ondansetron Inj 2 Mg/Ml 2 Ml Vial) 4 mg IV Q6H PRN PRN Reason: Nausea Stop: 09/26/23 18:08 Polyethylene Glycol (Polyethylene (Miralax) 17 Gm Pack) 17 gm PO DAILY PRN PRN Reason: Constipation Stop: 09/26/23 18:08 Sertraline HCl (Sertraline Hcl 50 Mg Tablet) 50 mg PO HS [facility] Stop: 09/26/23 20:59 Last Admin: 08/27/23 20:04 Dose: 50 mg
[2023-08-29 06:13] LABS: Basophils # (auto) 0.03 K/uL (0.00-0.20); Basophils % (auto) 0.5 %; Eosinophils # (auto) 0.12 K/uL (0.00-0.50); Eosinophils % (auto) 2.1 %; Hematocrit (blood only) 38.5 % (37.0-47.0); Hemoglobin 12.9 g/dl (12.0-16.0); Immature Granulocytes # (auto) 0.02 K/uL (0.01-0.20); Immature Granulocytes % (auto) 0.3 %; Lymphocytes # (auto) 2.41 K/uL (1.20-3.40); Lymphocytes % (auto) 41.2 %; Mean Corpuscular Hemoglobin 29.9 pg (25.0-34.0); Mean Corpuscular Hgb Conc 33.5 g/dL (32.0-36.0); Mean Corpuscular Volume 89.3 fL (80.0-100.0); Mean Platelet Volume 9.3 fL (9.4-12.4); Monocytes # (auto) 0.46 K/uL (0.11-0.59); Monocytes % (auto) 7.9 %; Neutrophils # (auto) 2.81 K/uL (1.40-6.50); Platelet Count 220 K/uL (130-400); Red Blood Count 4.31 M/uL (4.20-5.40); White Blood Count 5.85 K/ul (4.8-10.8)
[2023-08-29 06:24] LABS: BUN Creatinine Ratio 18.8 (10-20); Calcium 9.2 mg/dl (8.6-10.3); Creatinine Clr Calc Pharmacy 66.6 ml/min; Est GFR (African American) 77.2 ml/min; Est GFR (Non-African American) 66.6 ml/min; Potassium 4.3 mmol/L (3.5-5.1)
[2023-08-29] MEDS: ASPIRIN 81 MG ECTAB PO SCH (10:57)
--- NOTE | 2023-08-29 12:52 | Hospitalist Progress Note ---
Date of Service August 29, 2023 Assessment & Plan (1) Stroke-like symptoms: Plan: Presented with intermittent left-sided paresthesias for about 4 days prior to admission. Also complained of headache, some dysphagia, "fogginess" Strokelike symptoms DD: Complex migraine, cannot rule out TIA --MRI Brain:No acute intracranial abnormality. No acute or subacute infarct.. No abnormal enhancement. Mild scattered subcentimeter foci of T2/FLAIR prolongation within the periventricular and subcortical white matter favors early changes of chronic microvascular ischemic disease. A demyelinating process is considered less likely however could appear similarly. --Head CTA:No acute intracranial abnormality.. 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 --Neck CTA: Moderate atherosclerotic plaque within the proximal bilateral internal carotid arteries without significant stenosis. No dissection or aneurysm within neck. --ECHO: EF 60 to 65%. No significant valvular pathology. No interatrial shunt. --LDL: 144. Triglycerides 188. Total cholesterol 223 -- HbA1c 5.4 Prior hospitalist discussed with neurologist: Initially started on aspirin, Plavix. Later was advised to discontinue as symptoms likely due to complex migraine. Discussed with patient in detail. Patient agrees to continue aspirin, Lipitor for now. Advised to follow-up with neurology on discharge Left middle cerebral artery aneurysm Also noted on prior head CTA in 2021 Follow-up with neurosurgery as outpatient Dysphagia --Neck CTA:Medialization of the right vocal cord. This may be artifactual but raise the possibility of right vocal cord paralysis. Continue speech therapy Currently swallowing with no issues Will recommend to follow-up with ENT as outpatient (2) Paresthesias: Plan: Minimal paresthesia involving the left face Left frontal headache without any other associated symptoms --Homocysteine, myasthenia gravis panel pending --Treponema pallidum antibody negative --Lyme screen negative --Striated muscle antibody, acetylcholine receptor antibody pending --Outpatient TSH, magnesium, B12 levels normal as per record Further workup as outpatient DVT Px: Heparin SQ Admission and Anticipated Discharge Date Admission Date: August 27, 2023 Subjective Patient is seen and examined at bedside Left facial numbness much improved Still feels having some "fogginess" Headache better, not completely resolved Denies any focal weakness Discussed with patient's family at bedside Able to swallow better No other complaints Plan to be discharged home today Review of Systems Review of Systems: All systems reviewed & are unremarkable except as noted in Subjective Physical Exam Physical Exam: Physical Exam: Vitals signs as noted above General Appearance:Moderately built and nourished, no apparent distress Head: normocephalic, Atraumatic Eyes: normal inspection, EOMI Neck: supple, Trachea midline Respiratory/Chest: Normal breath sounds, CTA, No accessory muscle use Cardiovascular: S1, S2, No murmur Abdomen/GI:Soft, Non tender, Bowel sounds present Extremities/Musculoskeletal:normal inspection, no edema Neurologic/Psych:AAOX3, grossly no focal neurological deficits Skin: normal color, warm Results & Data Results & Data Vital Signs (Past 12 Hours) Vital Signs Temp Pulse Pulse Resp BP Pulse Ox O2 Del Method 08/29/23 10:44 36.8 C 70 18 132/85 98 Room Air 08/29/23 09:30 Room Air 08/29/23 07:38 69 08/29/23 07:35 36.6 C 68 20 109/76 97 Room Air 08/29/23 03:41 36.5 C 70 16 118/72 97 Room Air Laboratory Results Short CBC 08/29/23 Range/Units 05:34 WBC 5.85 (4.8-10.8) K/ul Hgb 12.9 (12.0-16.0) g/dl Hct 38.5 (37.0-47.0) % Plt Count 220 (130-400) K/uL BMP 08/29/23 05:34 Sodium 141 Potassium 4.3 Chloride 106 Carbon Dioxide 29 BUN 18 Creatinine 0.96 Glucose 93 Calcium 9.2
--- NOTE | 2023-08-29 13:09 | Discharge Summary ---
Date of Service August 29, 2023 Admission HPI Per Admitting Provider This is a 53yo F with a PMH of anxiety who presents with intermittent left sided paresthesias x 4 days. First noted tingling in migrating spots on top of head and then started to feel disoriented and confused on a Zoom call at 10:15AM that resolved a few hours but did not trust herself to drive during that time. Had some visual changes as well and had to increase font to work on her computer. Was seen at [facility] on Sunday with labwork done (normal CBC, CMP, TSH, mag, B12) as well as imaging ordered (CT head, CTA head/neck, brain MRI, EEG) that has not yet been done. Lynd slightly better over the weekend but was taking it easy, resting more and still felt "less sharp" than norm. States that she can follow a conversation but feels like she is "straining" to get detail correct and focus. When going to bed last night, developed numbness and headache on left side with fatigue. Woke up later than usual today and still felt weak. Developed numbness on left side of face again but this time extending to left arm, hand and leg. Still able to ambulate without difficulty. No difficulty speaking or swallowing. Called PCP and they called an ambulance to bring her to ED. Endorses migraines years ago but they were pure headaches without any associated numbness or tingling. Father with history of trigeminal neuralgia and stroke. No F/C or recent known viruses. No tick bites. No CP, SOB, N/V, abd pain, dysuria, diarrhea or constipation. Admission Exam Per Admitting Provider General Appearance: WD/WN, vitals as above, NAD, sitting up in bed, pleasant, conversing easily Head: normocephalic, atraumatic Eyes: normal inspection, PERRL, conjunctivae normal, anicteric sclerae ENT: external ear and nose normal, oropharynx normal Neck: normal visual inspection, trachea midline, no thyromegaly Respiratory: normal respiratory effort, lungs clear to auscultation, no wheeze, rales, rhonchi. No accessory muscle use Cardiovascular: regular rate, rhythm, no murmur, normal peripheral pulses, no BLE edema. Vessels: no JVD Chest: normal inspection of chest Abdomen/GI: normal bowel sounds, soft, nontender, no hepatosplenomegaly Extremities/Musculoskeletal: no cyanosis or clubbing, extremities motor strength 5/5 Neurologic: PERRL, EOMI, accommodation nl, no face palsy, no dysarthria, CN's II-XI intact bilaterally and moves all extremities. Finger to note intact bilaterally Psychiatric: A+Ox3, euthymic affect Skin: no rashes, normal color, warm/dry Principal Diagnosis Strokelike symptoms Left middle cerebral artery aneurysm--Chronic Dysphagia Discharge Data Allergies Allergy/AdvReac Type Severity Reaction Status Date / Time bee venom protein (honey bee) Allergy Severe Difficulty Verified 03/02/21 22:46 Breathing ciprofloxacin [From Cipro] Allergy Severe Swelling Verified 03/02/21 22:46 of Lip/Tongue/Throat sulfamethoxazole Allergy Severe HIVES,SWELLING Verified 03/02/21 22:47 [From Bactrim] LIPS THROAT trimethoprim [From Bactrim] Allergy Severe HIVES,SWELLING Verified 03/02/21 22:47 LIPS THROAT amoxicillin Allergy Intermediate hives Verified 03/02/21 22:47 clavulanic acid Allergy Intermediate hives Verified 03/02/21 22:47 oxycodone Allergy Intermediate Hives Verified 03/02/21 22:46 Consultations 08/27/23 15:39 ED Decision to Admit Stat 08/27/23 16:35 Consult Neurology Routine Procedures Performed Laboratory Results WBC 5.85 K/ul (4.8-10.8) 08/29/23 05:34 RBC 4.31 M/uL (4.20-5.40) 08/29/23 05:34 Hgb 12.9 g/dl (12.0-16.0) 08/29/23 05:34 POC Hgb 12.9 g/dl (12.0-16.0) 08/27/23 13:03 Hct 38.5 % (37.0-47.0) 08/29/23 05:34 POC Hct 38 % (37-47) 08/27/23 13:03 MCV 89.3 fL (80.0-100.0) 08/29/23 05:34 MCH 29.9 pg (25.0-34.0) 08/29/23 05:34 MCHC 33.5 g/dL (32.0-36.0) 08/29/23 05:34 RDW Std Deviation 39.0 fL (36.4-46.3) 08/29/23 05:34 RDW Coeff of Neal 12.0 % (11.5-14.5) 08/29/23 05:34 Plt Count 220 K/uL (130-400) 08/29/23 05:34 MPV 9.3 fL (9.4-12.4) L 08/29/23 05:34 Immature Gran % (Auto) 0.3 % 08/29/23 05:34 Neut % (Auto) 48.0 % 08/29/23 05:34 Lymph % (Auto) 41.2 % 08/29/23 05:34 [place] % (Auto) 7.9 % 08/29/23 05:34 Eos % (Auto) 2.1 % 08/29/23 05:34 Baso % (Auto) 0.5 % 08/29/23 05:34 Neut # (Auto) 2.81 K/uL (1.40-6.50) 08/29/23 05:34 Lymph # (Auto) 2.41 K/uL (1.20-3.40) 08/29/23 05:34 [place] # (Auto) 0.46 K/uL (0.11-0.59) 08/29/23 05:34 Eos # (Auto) 0.12 K/uL (0.00-0.50) 08/29/23 05:34 Baso # (Auto) 0.03 K/uL (0.00-0.20) 08/29/23 05:34 Immature Gran # (Auto) 0.02 K/uL (0.01-0.20) 08/29/23 05:34 PT 10.2 Seconds (9.0-12.0) 08/27/23 12:54 INR 0.9 (0.9-1.1) 08/27/23 12:54 APTT 27 Seconds (21-31) 08/27/23 12:54 PTT Ratio 1.0 08/27/23 12:54 D-Dimer < 190 ug/L FEU (0-500) 08/28/23 05:41 POC Sodium 141 mmol/L (135-144) 08/27/23 13:03 Sodium 141 mmol/L (136-145) 08/29/23 05:34 POC Potassium 3.6 mmol/L (3.3-5.0) 08/27/23 13:03 Potassium 4.3 mmol/L (3.5-5.1) 08/29/23 05:34 POC Chloride 103 mmol/L (101-112) 08/27/23 13:03 Chloride 106 mmol/L (98-107) 08/29/23 05:34 Carbon Dioxide 29 mmol/L (21-32) 08/29/23 05:34 POC Total CO2 24 mmol/L (24-31) 08/27/23 13:03 Anion Gap 6 (3-11) 08/29/23 05:34 POC Anion Gap 19.0 mmol/L (16-25) 08/27/23 13:03 POC BUN 10 mg/dl (7-18) 08/27/23 13:03 BUN 18 mg/dl (6-23) 08/29/23 05:34 Creatinine 0.96 mg/dl (0.6-1.2) 08/29/23 05:34 POC Creatinine 0.9 mg/dl (0.6-1.3) 08/27/23 13:03 Est Cr Clr Drug Dosing 66.6 ml/min 08/29/23 05:34 Est GFR ( Amer) 77.2 ml/min 08/29/23 05:34 Est GFR (Non-Af Amer) 66.6 ml/min 08/29/23 05:34 BUN/Creatinine Ratio 18.8 (10-20) 08/29/23 05:34 Glucose 93 mg/dl (70-99(Fasting)) 08/29/23 05:34 POC Glucose (other) 130 mg/dl (70-99) H 08/27/23 13:03 Estimat Average Glucose 108 mg/dl 08/28/23 05:41 Hemoglobin A1c 5.4 % (4.5-5.6) 08/28/23 05:41 Calcium 9.2 mg/dl (8.6-10.3) 08/29/23 05:34 POC Ioniz Calcium [place] 1.21 mmol/l (1.12-1.32) 08/27/23 13:03 Magnesium 2.0 mg/dl (1.7-2.4) 08/27/23 12:54 Total Bilirubin 0.4 mg/dl (0.2-1.0) 08/27/23 12:54 AST 16 U/L (13-39) 08/27/23 12:54 ALT 16 U/L (7-52) 08/27/23 12:54 Alkaline Phosphatase 43 U/L (34-104) 08/27/23 12:54 Troponin I High Sens < 2.3 pg/ml (0-14) 08/27/23 12:54 Total Protein 7.0 gm/dl (6.0-8.3) 08/27/23 12:54 Albumin 4.4 gm/dl (3.4-5.0) 08/27/23 12:54 Globulin 2.6 gm/dl (2.5-4.0) 08/27/23 12:54 Albumin/Globulin Ratio 1.7 (0.9-2) 08/27/23 12:54 Triglycerides 188 mg/dl (0-150) H 08/28/23 05:41 Cholesterol 233 mg/dl (0-200) H 08/28/23 05:41 LDL Cholesterol, Calc 144 mg/dl 08/28/23 05:41 VLDL Cholesterol, Calc 38 mg/dl (0-30) H 08/28/23 05:41 HDL Cholesterol 51 mg/dl 08/28/23 05:41 Cholesterol/HDL Ratio 4.6 (0-5) 08/28/23 05:41 Urine Color Yellow 08/28/23 Unknown Urine Appearance Clear (Clear) 08/28/23 Unknown Urine pH 6.0 (4.5-7.5) 08/28/23 Unknown Ur Specific [place] > 1.045 (1.000-1.030) H 08/28/23 Unknown Urine Protein Negative (Negative) 08/28/23 Unknown Urine Glucose (UA) Negative (Negative) 08/28/23 Unknown Urine Ketones Negative (Negative) 08/28/23 Unknown Urine Blood Negative (Negative) 08/28/23 Unknown Urine Nitrite Negative (Negative) 08/28/23 Unknown Urine Bilirubin Negative (Negative) 08/28/23 Unknown Urine Urobilinogen Negative (Negative) 08/28/23 Unknown Ur Leukocyte Esterase Negative (Negative) 08/28/23 Unknown Treponema pallidum Ab Negative (Negative) 08/28/23 05:41 Impressions Chest X-Ray 08/27/23 12:53 XR chest 1V portable CLINICAL HISTORY: stroke like symptoms COMPARISON STUDY: No previous studies for comparison. FINDINGS: Lung volumes are normal. Lungs are clear. There is no pneumothorax or pleural effusion. Cardiac size is normal. Mediastinal contours are normal. There is no evidence for pulmonary edema. IMPRESSION: No acute cardiopulmonary findings. ACT 112: Negative or not required by law. Electronically signed by: Nitish Joy M.D. 08/27/2023 1:[address] 08/27/23 12:53 CT head/brain wo con CLINICAL HISTORY: 53 years-old Female with Neuro deficit, acute, stroke suspected. Acute stroke like symptoms TECHNIQUE: Multiple axial CT images of the head were obtained without contrast. A dose lowering technique was utilized adhering to the principles of ALARA. CT DOSE: 1058.71 mGy.cm COMPARISON: CTA head of same day, head CT 03/02/2021 FINDINGS: No acute intracranial hemorrhage, midline shift, intracranial mass, hydrocephalus, territorial ischemia or abnormal extra-axial collection. Mildly motion degraded exam. Low-lying cerebellar tonsils. The calvarium is intact. The paranasal sinuses, mastoid air cells, and middle ear cavities are clear. IMPRESSION: No acute intracranial abnormality. ACT 112: Negative or not required by law. The above report was generated using voice recognition software. It may contain grammatical, syntax or spelling errors. Electronically signed by: Cruz Patel M.D. 08/27/2023 1:29 PM Head CTA 08/27/23 12:53 CT angio head w con CLINICAL HISTORY: 53 years-old Female with L sided numbness. Acute stroke like symptoms COMPARISON STUDY: Head CT of same day, CTA head 03/02/2021 TECHNIQUE: Unenhanced axial CT scan of the brain is performed. Subsequently, following the IV administration of 03/02/2021 cc of Optiray, CT angiogram of the brain was performed from the skull base to the vertex. Images are reviewed in the axial, sagittal, and coronal planes. 3-D MIPS images are created and assessed. IV contrast was administered without complication. All measurements were obtained according to NASCET criteria. A dose lowering technique was utilized adhering to the principles of ALARA. FINDINGS: CT ANGIOGRAM OF THE BRAIN: The middle and anterior cerebral arteries appear patent. There is an unchanged 2 mm saccular aneurysm noted at the level of the left MCA trifurcation (image 116 of series 5). Dominant right vertebral artery. The vertebral arteries are widely patent. The bilateral vertebral arteries are widely patent. The basilar and posterior cerebral arteries are patent. The cerebral venous sinuses are patent. There is no abnormal intracranial enhancement. IMPRESSION: 1. No acute intracranial abnormality. 2. 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 ACT 112: Negative or not required by law. The above report was generated using voice recognition software. It may contain grammatical, syntax or spelling errors. Electronically signed by: Cruz Patel M.D. 08/27/2023 2:08 PM Neck CTA 08/27/23 12:53 CT ANGIOGRAPHY OF THE NECK WITH CONTRAST CLINICAL HISTORY: Left-sided numbness. COMPARISON STUDY: CTA of the neck March 02, 2021. Technique: CT angiography of the carotid and vertebral arteries was obtained using Optiray and 3D reconstruction on an independent workstation. ScancellET crite luis f was utilized. Automated exposure control was utilized for the study. A dose lowering technique was utilized adhering to the principles of ALARA. Findings: Visualized portions of the lung apices are unremarkable. There is no cervical spine fracture. There is no cervical lymphadenopathy. There is medialization of the right vocal cord. The bilateral common carotid, cervical internal carotid and vertebral arteries are patent. There is moderate plaque within the proximal bilateral cervical internal carotid arteries without stenosis. There is no aneurysm or dissection within the neck. IMPRESSION: 1. Moderate atherosclerotic plaque within the proximal bilateral internal carotid arteries without significant stenosis. No dissection or aneurysm within neck. 2. Medialization of the right vocal cord. This may be artifactual but raise the possibility of right vocal cord paralysis. ACT 112: Negative or not required by law. Electronically signed by: Nitish Joy M.D. 08/27/2023 2:02 PM Brain MRI 08/27/23 16:17 MR brain wo/w con HISTORY: 53 years-old Female L facial numbness, confusion acutely altered mental status COMPARISON: MRI cervical spine and head CT studies of same day TECHNIQUE: Multiplanar multisequence MRI of the brain was obtained with and without IV contrast. FINDINGS: No restricted diffusion. Midline structures are unremarkable. No acute intracranial hemorrhage, midline shift, abnormal extra-axial collection, hydrocephalus or intra-axial mass. No pathologic blooming artifact. Brain volume is normal for patient age. There are a few scattered subcentimeter foci of T2/FLAIR prolongation within the subcortical in periventricular white matter, likely of no clinical significance. Cerebral venous sinuses and major arterial flow voids appear patent. Skull, orbits and soft tissues are unremarkable. Mastoid air cells and paranasal sinuses appear clear. Normal signal within the brainstem and imaged upper ce rvical spinal cord. No abnormal enhancement. IMPRESSION: 1. No acute intracranial abnormality. No acute or subacute infarct. 2. No abnormal enhancement. 3. Mild scattered subcentimeter foci of T2/FLAIR prolongation within the periventricular and subcortical white matter favors early changes of chronic microvascular ischemic disease. A demyelinating process is considered less likely however could appear similarly. ACT 112: Negative or not required by law. The above report was generated using voice recognition software. It may contain grammatical, syntax or spelling errors. Electronically signed by: Cruz Patel M.D. 08/27/2023 6:53 PM Cervical Spine MRI 08/27/23 17:06 MR cervical spine wo/w con HISTORY: 53 years-old Female eval for demyelinating disease per neuro acute left-sided facial numbness with tingling COMPARISON: Brain MRI of same day, CTA neck of same day TECHNIQUE: Multiplanar multisequence MRI of the cervical spine was obtained with and without IV contrast FINDINGS: Mildly motion degraded exam. No abnormal enhancement. Straightening of the normal cervical lordosis. No acute fracture, subluxation or endplate erosion. No significant bone marrow edema. Normal signal within the imaged posterior fossa structures, cervical and imaged upper thoracic spinal cord. Small upper thoracic Tarlov cysts. Unremarkable soft tissues of the neck. C2-C3: Mild uncovertebral hypertrophy and facet arthrosis. No central canal or foraminal narrowing. C3-C4: Mild uncovertebral hypertrophy and facet arthrosis. No central canal or foraminal narrowing. C4-C5: Moderate intervertebral disc space narrowing with small posterior disc osteophyte complex and mild facet arthrosis. Flattening of the ventral thecal sac without significant central canal stenosis. Mild left with mild to moderate right foraminal narrowing. C5-C6: Moderate intervertebral disc space narrowing with small posterior disc osteophyte complex and mild facet arthrosis. The central canal is patent. Mild to moderate bilateral foraminal narrowing. C6-C7: Uncovertebral hypertrophy with small posterior annular disc bulge and mild facet arthrosis. Flattening of the ventral thecal sac without significant central canal or foraminal narrowing. C7-T1: Mild facet arthrosis. No central canal or foraminal narrowing. IMPRESSION: 1. Normal signal of the cervical spinal cord. No demyelinating plaques or abnormal enhancement. 2. Moderate intervertebral disc space narrowing at C4-C5 and C5-C6. 3. No high-grade central canal or foraminal narrowing. ACT 112: Negative or not required by law. The above report was generated using voice recognition software. It may contain grammatical, syntax or spelling errors. Electronically signed by: Cruz Patel M.D. 08/27/2023 7:01 PM Thoracic Spine MRI 08/28/23 17:06 THORACIC SPINE MRI WITH AND WITHOUT CONTRAST HISTORY: Paresthesias. eval for demyelinating disease per neuro TECHNIQUE: Multiplanar multisequence MRI of the thoracic spine was performed both before and after the intravenous administration of contrast. COMPARISON: None. FINDINGS: Mild dextroscoliosis of the thoracic spine. There are few small vertebral body hemangioma is noted within the thoracic spine. No suspicious osseous lesions identified. No fracture or subluxation. Disc spaces are preserved. No disc herniations. No significant central canal or neural foraminal narrowing. Paravertebral soft tissues are unremarkable. The thoracic spinal cord is normal in course, caliber, and signal intensity. No abnormal enhancement identified. Incidental note is made of a 3.9 cm left hepatic lobe cyst. IMPRESSION: 1. Normal thoracic spinal cord. No evidence for demyelination. 2. No fracture or subluxation within the thoracic spine. ACT 112: Negative or not required by law. Electronically signed by: Parveen Cardoso M.D. 08/28/2023 1:37 PM Ordered Studies 08/27/23 12:53 CT head/brain wo con Stat CTA head w con [CT angio head w con] Stat CTA neck with con [CT angio neck with con] Stat 08/27/23 16:17 MR brain wo/w con Stat 08/27/23 17:06 MRI Cervical [MR cervical spine wo/w con] Stat 08/28/23 17:06 MR thoracic spine wo/w con Stat Hospital Course (1) Stroke-like symptoms: Presented with intermittent left-sided paresthesias for about 4 days prior to admission. Also complained of headache, some dysphagia, "fogginess" Strokelike symptoms DD: Complex migraine, cannot rule out TIA --MRI Brain:No acute intracranial abnormality. No acute or subacute infarct.. No abnormal enhancement. Mild scattered subcentimeter foci of T2/FLAIR prolongation within the periventricular and subcortical white matter favors early changes of chronic microvascular ischemic disease. A demyelinating process is considered less likely however could appear similarly. --Head CTA:No acute intracranial abnormality.. 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 --Neck CTA: Moderate atherosclerotic plaque within the proximal bilateral internal carotid arteries without significant stenosis. No dissection or aneurysm within neck. --ECHO: EF 60 to 65%. No significant valvular pathology. No interatrial shunt. --LDL: 144. Triglycerides 188. Total cholesterol 223 -- HbA1c 5.4 Prior hospitalist discussed with neurologist: Initially started on aspirin, Plavix. Later was advised to discontinue as symptoms likely due to complex migraine. Discussed with patient in detail. Patient agrees to continue aspirin, Lipitor for now. Advised to follow-up with neurology on discharge Left middle cerebral artery aneurysm Also noted on prior head CTA in 2021 Follow-up with neurosurgery as outpatient Dysphagia --Neck CTA:Medialization of the right vocal cord. This may be artifactual but raise the possibility of right vocal cord paralysis. Continue speech therapy Currently swallowing with no issues Will recommend to follow-up with ENT as outpatient (2) Paresthesias: Minimal paresthesia involving the left face Left frontal headache without any other associated symptoms --Homocysteine, myasthenia gravis panel pending --Treponema pallidum antibody negative --Lyme screen negative --Striated muscle antibody, acetylcholine receptor antibody pending --Outpatient TSH, magnesium, B12 levels normal as per record Further workup as outpatient DVT Px: Heparin SQ Total Time Total Time Spent Total Time Spent (In Minutes): 58 minutes Discharge Plan Discharge Items Patient Disposition: Home - Self-Care Reason For Visit: STROKE EVAL Discharge Diagnosis: Strokelike symptoms Left middle cerebral artery aneurysm--Chronic Dysphagia Activity: Per Instructions section Exercise/Sports: Gradually increase as tolerated Driving/Machine Use: No driving recommended until cleared by your neurologist/PCP Non-emergency contact: Primary Care Provider and Neurologist Call non-emergency contact if: you have any medication questions, your symptoms worsen, your pain is concerning for you and you have a fever Follow-up/Referrals: Fauzia Dangelo DO [Outside Practitioners] - (Date & Time 09/03/2023 5:00 PM Provider Fauzia Dangelo DO Department Family Practice [facility] ) Norma Suarez PA-C [Physician Last Inserter] - (Date & Time 09/06/2023 10:00 AM Provider Norma Suarez PA-C Department Neurology [facility] ) Diet: Heart Healthy Addtl Attending Provider Instructions: Follow-up with your primary care physician and neurology as scheduled. Consider following with ENT if you continue to have difficulty swallowing Follow-up with your neurosurgeon for further evaluation of Left middle cerebral artery aneurysm (you are also noted to have similar finding in 2021) Seek immediate medical attention if your symptoms reoccur or worsen Please take all medications as instructed on discharge list below. Please call if you have any questions or problems. You can reach a [facility] hospitalist on duty at [facility] 24 hours a day by calling [phone] Risk Factors for Stroke: You can reduce your chances of stroke by working with your medical provider to adopt a healthy lifestyle. Some specific ways to lower your chance of stroke are: * If you are a smoker, now is the time to stop smoking cigarettes * If you are diabetic, improve the control of your blood sugars * Avoid excessive amounts of alcohol * Control high blood pressure * Lose weight if you are overweight * Be sure to lead an active lifestyle * Eat a healthy diet low in salt, cholesterol and fat You should know about other risk factors for stroke that you are unable to control. These include: * Age 55 years or older * Male gender * Certain racial groups: , or / * Family History of Stroke, Mini stroke or Heart Attack * Sickle Cell Disease Follow Up: It is important for you to keep your follow up appointments with your medical provider. Who to Call and When: Medical Emergencies: Call 911 immediately if you experience any of the following warning signs and symptoms of Stroke: * Sudden numbness or weakness of the face, arm or leg, especially on one side of the body * Sudden confusion, trouble speaking or understanding * Sudden trouble seeing in one or both eyes * Sudden trouble walking, dizziness, loss of balance or coordination * Sudden severe headache with no cause Do not delay calling 911 if you experience any warning signs or symptoms of a st roke. Delay in seeking medical attention may affect what treatments can be given to you. . Pending Studies at Discharge: Yes Studies:: Myasthenia panel, homocysteine level Stand-Alone Forms: My [facility], Work/School Release, Smoking Cessation, Medications to Prevent Stroke Medications and DC Order Prescriptions: New atorvastatin 40 mg Tablet 40 mg PO QAM Qty: 30 0RF aspirin 81 mg Tablet,Delayed Release (Dr/Ec) 81 mg PO QAM Qty: 30 0RF Continued sertraline 50 mg Tablet 50 mg PO HS epinephrine 0.3 mg/0.3 mL auto-injector 0.3 ml IM DAILY PRN (Reason: Allergic Reaction) Rx Instructions: LAST FILLED OCT 2022 [employer] Discharge Orders: Discharge Order (Routine); Ordered 08/29/23 Ordered By: Nemesio Morrissey Admission Data Admit Date/Time: 08/27/23 15:40 Attending Provider: Nemesio Morrissey Admit Provider: Adeola Loja Primary Care Provider: PCP,NO Other Providers: Adeola Loja; Fredy Taylor
[2023-09-04 08:21] LABS: Anti-Striated Muscle NEGATIVE (NEGATIVE); Receptor Binding Ab <0.30 nmol/L
== END 2023-08-29 14:55 | disposition home or self-care (01) | DRG 103 ==
LOC: ED 12:39 → 2E 15:40 → SUATTDRO 15:40 → INTOOBSV 15:40 → 2E 16:49